=== PATIENT | male | born 1965 | race Asian ===

== ENCOUNTER 2025-01-28 11:46 | Inpatient (IN) | payer BC, SELFPAY ==
[2025-01-28] VITALS (12 sets, daily range): BP systolic 81–100; BP diastolic 63–73; PULSE 70–80; RESP 16–26; TEMP 36.4–37; O2SAT 94–100; BMI 25.8; BMI 26.6
--- NOTE | 2025-01-28 11:52 | EKG12_ITS ---
Test Reason : SYNCOPE Blood Pressure : */* mmHG Vent. Rate : 69 BPM Atrial Rate : 69 BPM P-R Int : 166 ms QRS Dur : 104 ms QT Int : 398 ms P-R-T Axes : 46 16 18 degrees QTcB Int : 426 ms Normal sinus rhythm Incomplete right bundle branch block Inferior infarct , age undetermined ? recent Abnormal ECG Confirmed by Dayne Sin ([id number]), desk editor ELIAN FERNANDES ([id number]) on 01/29/2025 9:13:22 AM Referred By: Confirmed By: Dayne Sin
[2025-01-28 12:51] LABS: Absolute Lymphocyte Count 0.86 X10^3/uL (0.83-4.51); Absolute Neutrophil Count 8.7 X10^3/uL (2.0-7.7); Hematocrit 39.4 % (40-54); Hemoglobin 13.4 g/dL (13.0-16.5); Lymphocyte # 0.86 X10^3/ul (0.83-4.51); Lymphocyte % 8.3 % (19-41); Mean Corpuscular Hgb 31.2 pg (27.0-32.0); Mean Corpuscular Volume 91.8 fL (80-94); Mean Platelet Vol. 10.2 fl (6.2-12.0); Monocyte# 0.69 X10^3/uL; Monocyte% 6.7 % (0-10); NRBC Flagged by Analyzer 0 % (0-5); Neutrophil # 8.73 X10^3/uL (2.7-7.7); Neutrophil % 84.6 % (47-70); Platelet Count 234 K/mm3 (150-450); RBC Distribution Width CV 12.8 % (11.6-14.6); RBC Distribution Width SD 42.6 fl (35.1-43.9); Red Blood Count 4.29 M/mm3 (4.6-6.2); White Blood Count 10.3 K/mm3 (4.4-11.0)
[2025-01-28] MEDS: 0.9% Normal Saline (1000mL) 1,000 ML 999 ML IV ×2 (12:51→16:44)
[2025-01-28 13:48] LABS: Anion Gap 12 (5-15); BUN 23 mg/dL (4-19); BUN/Creat Ratio 22.1 RATIO (10-20); Calcium,Total 9.4 mg/dL (7.6-11.0); Carbon Dioxide 21.3 mmol/L (21.0-32.0); Chloride 103 mmol/L (98-108); Creatinine, Serum 1.05 mg/dL (0.70-1.20); EST Glomerular Filtration Rate 81 (>60); Estimated Creatinine Clearance 66.67 ml/min (50-250); Glucose 125 mg/dL (70-99); Potassium 4.2 mmol/L (3.3-5.1); Sodium Level 136 mmol/L (133-145)
--- NOTE | 2025-01-28 14:22 | ED.VIS.DYS ---
HPI History of Present Illness Chief Complaint: Shortness of Breath Informant: patient and spouse/S.O. Narrative Narrative: 59-year-old male presenting with his , he states yesterday he was at [facility] and walked up 2-300 steps and felt very dyspneic when he got to the top, after resting for about 10 minutes he felt a lot better, friend helped him get to the car, air conditioning then felt very abnormally controlled. He had some lightheadedness and near syncope with walking this morning. He felt some burning discomfort in his upper throat like reflux that he is experienced before he states because of this he takes Tums almost every day but is not on no acid reflux medication otherwise. Since last night after the hiking, he has been having upper abdominal pain in the right upper quadrant and pressure throughout the rest of his upper abdomen. Some nausea no vomiting. Had a bowel movement this morning that was normal, no melena or blood, did not change his pain at all. He has been having daily bowel movements. Abdominal pain was no worse after eating food this morning. No history of any abdominal surgery before. No leg pain or swelling. No history of recent immobilization, long travel out of the area, surgery, no history of DVT or PE in the past. He takes daily prescriptions for blood pressure only. [facility] Medical History High blood cholesterol Hypertension Medical History no medical history Home Medications ?Medication ?Instructions ?Recorded ?Last Taken ?Type cholecalciferol (vitamin D3) 125 125 mcg PO DAILY 01/28/25 01/28/25 History mcg (5,000 unit) tablet (Vitamin D3) losartan 50 mg tablet 50 mg PO DAILY 01/28/25 01/28/25 History multivitamin (Daily Multi-Vitamin 1 tab PO DAILY 01/28/25 01/28/25 History tablet) Allergy/AdvReac Type Severity Reaction Status Date / Time No Known Allergies Allergy Verified 01/28/25 11:51 Family History no significant family his Surgical History (Updated 01/28/25 @ 12:38 by Mary Anne Oliveros) H/O hand surgery Surgical History no surgical history Social History Smoking Status: Never smoker ROS ROS ED Constitutional Constitutional ED: Denies chills or fever(s) Eyes Eyes: Denies change in vision or diplopia ENT ENT ED: Denies rhinorrhea or sore throat Cardiovascular Cardiovascular: Reports chest pain and lightheadedness; Denies leg edema, palpitations or syncope Respiratory/Chest Respiratory/Chest: Reports dyspnea on exertion; Denies cough Gastrointestinal Gastrointestinal: Reports abdominal pain and nausea; Denies diarrhea, hematemesis, hematochezia, melena or vomiting Genitourinary Genitourinary ED: Denies dysuria or hematuria Musculoskeletal Musculoskeletal: Reports back pain; Denies neck pain Integumentary Denies abscess or rash Neurologic Neurologic: Denies headache(s), paresthesias or weakness Psychiatric Psychiatric: Denies anxiety or suicidal thoughts EXAM Physical Exam Const Vital Signs: 01/28/25 11:47 01/28/25 11:51 01/28/25 11:51 Temperature 97.5 F L Temperature Source Temporal Pulse Rate 78 Respiratory Rate 16 21 H Respiratory Effort Respiratory Depth Respiratory Pattern Blood Pressure 89/68 L Blood Pressure Mean 75 Pulse Ox 100 98 98 Oxygen Delivery Method Room Air Room Air Room Air 01/28/25 12:34 01/28/25 12:39 01/28/25 13:00 Temperature Temperature Source Pulse Rate 70 Respiratory Rate 23 H Respiratory Effort Short of Breath Respiratory Depth Normal Respiratory Pattern Normal Blood Pressure 81/63 L 92/63 Blood Pressure Mean 69 72 Pulse Ox 97 Oxygen Delivery Method Room Air Room Air 01/28/25 14:00 01/28/25 15:00 01/28/25 16:00 Temperature Temperature Source Pulse Rate 73 74 71 Respiratory Rate 25 H 25 H 24 H Respiratory Effort Respiratory Depth Respiratory Pattern Blood Pressure 94/67 87/65 L 94/69 Blood Pressure Mean 76 72 78 Pulse Ox 97 97 96 Oxygen Delivery Method Room Air Positive well nourished and well developed Constitutional Narrative: Well-appearing no distress General Appearance ED: well developed and NAD HEENT Reports moist mucous membranes normocephalic and atraumatic Eyes PERRL and EOMs intact bilaterally Neck full ROM, no lymphadenopathy, supple and no meningeal signs Resp normal respiratory effort and clear to auscultation bilaterally Cardio regular rate, regular rhythm and no murmurs Rate: Negative for tachycardic GI non-distended GI Narrative: Mild right upper quadrant epigastric tenderness. Negative Beckwith. Auscultation: normoactive bowel sounds Palpation: soft Back/Spine no CVA tenderness General Back: other FROM Extremity normal to inspection General Extremety ED: Negative for edema, pulses abnormal or tenderness General Extremity: Negative for edema or pulses abnormal Neuro oriented x3, CN's II-XII intact bilaterally and no sensory deficits noted Sensorium / Orientation: awake and alert Motor Exam: strength 5/5 throughout Psych mental status grossly normal Skin no rashes or lesions noted and no wounds MDM MDM MDM Narrative Medical decision making narrative: Nursing protocol orders were begun, I reviewed his EKG is unremarkable except for an RSR prime in the anterior precordial leads. Diffuse differential here given his very benign exam, but hypotensive 89/68 when he arrived otherwise normal vital signs, currently during exam 94/67. I am considering sepsis, he does not sound clinically like he has pneumonia, but obtaining a chest x-ray, labs including liver enzymes and lipase, troponin and proBNP, as well as a D-dimer to rule out PE which she has no reason to have. In the meantime we will give him a liter of fluid, considering the possibility of hypovolemia/dehydration given his exertion/exercise tomorrow and he was in the hot sun. At this time he has a very benign abdomen, no pulsatile mass, intact distal pulses, he sitting up conversive in full sentences without any active dyspnea at rest and his lungs sound clear. His D-dimer is within normal limits rule out PE, his lactate is normal, he has barely elevated AST and ALT, and his proBNP is normal but his troponin returns at 1350 despite his EKG looking unremarkable. He remains fairly asymptomatic, however if he stands up he has orthostatic symptoms, he did this when getting his chest x-ray. After the first liter of fluid his blood pressure was still low so we got another liter and now he is 94/69. Empirically we gave him some Maalox while getting testing, he states that he upper chest burning that he had is gone and he feels like that treated his reflux but he still has right upper quadrant abdominal discomfort although he is not very tender. I discussed some of this with Dr. Sin, he advises putting the patient on a heparin drip and admitting him to the hospital and he will see him, I also gave him aspirin 324. Patient denies any pain going into his back or symptoms that sound like a dissection, but I am concerned with his transient hypotension that he could have an anterior cardiac/LV ischemic process although his EKG does not show anything right now except possibly some mildly abnormal T waves in lead aVF. He is inverted in lead III which can be normal, possibly aVF, but there is no ST depressions or elevations or other acute repolarization abnormalities. He continues to respond to IV fluids which we continue to give him in the ED. Cardiology saw him in the ED, agrees that he does not have an acute abdomen, suspects he is probably having some hepatic congestion from possible inferior wall NSTEMI, plan is for echo and probably cath in the morning. Discussed with hospitalist. Lab Data Attestation: I reviewed the patient's lab results. Labs: Laboratory Results - last 24 hr 01/28/25 01/28/25 01/28/25 12:40 14:50 15:09 WBC 10.3 RBC 4.29 L Hgb 13.4 Hct 39.4 L MCV 91.8 MCH 31.2 MCHC 34.0 RDW Std Deviation 42.6 RDW Coeff of Nivia 12.8 Plt Count 234 MPV 10.2 Immature Gran % (Auto) 0.400 Neut % (Auto) 84.6 H Lymph % (Auto) 8.3 L [place] % (Auto) 6.7 Eos % (Auto) 0.0 Baso % (Auto) 0.0 Absolute Neuts (auto) 8.7 H Absolute Lymphs (auto) 0.86 Nucleated RBC % 0 D-Dimer Quant (PE/DVT) 0.34 Sodium 136 Potassium 4.2 Chloride 103 Carbon Dioxide 21.3 Anion Gap 12 BUN 23 H Creatinine 1.05 Estim Creat Clear Calc 66.67 Est GFR (MDRD) Non-Af 81 BUN/Creatinine Ratio 22.1 H Glucose 125 H Lactic Acid 1.8 Calcium 9.4 Total Bilirubin 0.63 Direct Bilirubin 0.26 AST 228 H ALT 60 H Alkaline Phosphatase 63 Troponin T High Sens 1350 H* NT pro BNP II 695 Total Protein 6.2 Albumin 3.6 Globulin 2.6 Lipase 25 Urine Color Yellow Urine Clarity Clear Urine pH 6.0 Ur Specific [place] 1.020 Urine Protein 30 H Urine Glucose (UA) Normal Urine Ketones Negative Urine Occult Blood 10 H Urine Nitrite Negative Urine Bilirubin Negative Urine Urobilinogen Normal Ur Leukocyte Esterase Negative Urine RBC 0 SEEN Urine WBC 0 SEEN Ur Squamous Epith Cells 0-5 SEEN Urine Bacteria 0 SEEN Urine Mucus 1+ Radiography Diagnostic Testing: Clinical Impression(s) from Imaging Studies Chest X-Ray 01/28/25 15:25 IMPRESSION: NO ACUTE FINDINGS. Reading Location: [id number] Rhythm Strip Rhythm Strip: Sinus Rhythm Rate: 70 Ectopy: None EKG Initial EKG: Attestation: I personally reviewed and interpreted this EKG as follows: Interpretation: Sinus Rhythm and No Acute Injury Pattern Comments: Nml axis & intervals; nml EKG Management Discussion w/another healthcare provider: Hospitalist and Certified Marine [employer]ic (michaela, cardiology) Critical Care Time Critical Care Time: Yes Critical care time (excluding procedures): 30-74 minutes (32 min), Including time spent:, Discussing w/Patient &/or Family/Development Director, Discussing w/Consultants, Arranging Admission or Transfer and Performing Direct Patient Care at Bedside Discharge Plan Dx/Rx/DC Orders Clinical Impression: Non-ST elevation [place] (NSTEMI), Transient hypotension, Abdominal pain, acute, right upper quadrant Disposition Disposition: Acute Care Hospital [facility]
[2025-01-28] MEDS: Ondansetron 4 MG/2 ML Vial IV (15:08)
[2025-01-28] MEDS: Mag Hydrox/Al Hydrox/Simeth 30 ML UDC PO (15:08)
[2025-01-28 15:13] LABS: Bacteria 0 SEEN /hpf (None Seen); Red Blood Cells-Urine 0 SEEN /hpf (0-5); White Blood Cells 0 SEEN /hpf (0-5)
[2025-01-28 15:18] LABS: D-Dimer Quantitative (DVT/PE) 0.34 FEU/ug/m (0.27-0.49)
[2025-01-28 15:21] LABS: Color, Urine Yellow (Yellow); Glucose, Dipstick Normal (Normal); Ketone-Dipstick Negative (Negative); Leukocyte Esterase-Dipstick Negative /ul (Negative); Nitrite-Dipstick Negative (Negative); Occult Blood-Urine 10 /ul (Negative); Protein-Dipstick 30 mg/dl (Negative); Urine Bilirubin Dipstick Negative (Negative); Urine Clarity Clear (Clear); Urine Urobilinogen Normal (Normal)
--- NOTE | 2025-01-28 15:25 | RAD_ITS ---
PROCEDURE: CHEST PA AND LATERAL 01/28/2025 REASON FOR EXAM: CARMONA TECHNIQUE: Frontal and lateral views of the chest. COMPARISON: None FINDINGS: Hardware: EKG electrodes are seen. Heart: The heart size is normal. Mediastinum: The mediastinal contour is unremarkable. Lungs: The lungs are clear. Bones: The bones are unremarkable. RAD/Chest PA and Lateral IMPRESSION: NO ACUTE FINDINGS. Reading Location: [facility]
[2025-01-28 15:27] LABS: AST(SGOT) 228 U/L (<=37); Alanine Aminotransfer ALT/SGPT 60 U/L (<=46); Albumin, Serum 3.6 g/dL (3.4-4.8); Alkaline Phosphatase 63 U/L (40-129); Bilirubin, Direct 0.26 mg/dL (0.00-0.30); Globulin 2.6 g/dL (2.2-4.2); Lipase 25 U/L (13-75); Protein, Total 6.2 g/dL (5.9-8.4); Total Bilirubin 0.63 mg/dL (0.00-1.30)
[2025-01-28 15:29] LABS: Lactic Acid 1.8 mmol/L (0.0-2.0)
[2025-01-28 15:29] LABS: Mucous, Urine 1+ /hpf (<or=2+); Squamous Epithelial Cells - UA 0-5 SEEN /hpf (0-5)
[2025-01-28 15:30] LABS: Pro- Brain NATRIURETIC PEPTIDE 695 pg/mL (<=900)
[2025-01-28 15:34] LABS: Troponin T High Sensitivity 1350 ng/L (<=22)
[2025-01-28] MEDS: Heparin Injection (Vial) 5,000 UNIT/ML VIAL 4000 UNIT IV (16:20)
[2025-01-28] MEDS: HEPARIN/D5w 25,000 UNITS 25,000 UNITS/250 ML IV.SOLN. 9 UNITS CONT INF ×2 (16:20)
[2025-01-28] MEDS: Aspirin 81 MG TAB.CHEW 324 MG PO (16:21)
--- NOTE | 2025-01-28 16:39 | PCM.HP.STD ---
HPI - General General Date of Admission: 01/28/25 Date of Service: 01/28/25 Chief Complaint: Lightheadedness, dizziness, near syncope, chest pain/dyspepsia HPI Narrative The patient is a 59 y/o M w/ PMHx: HTN, HLD who presents to the [facility] ED on 01/28/25 with history of significant exercise with his the day with significant dyspnea with improvement with at least 10 minutes of rest with a friend helping him get to the car with mild lightheadedness and near syncopal type sensation noted with walking on morning of day of presentation with onset of chest discomfort/burning with radiation into his upper throat with concern for may be dyspepsia at that time noting that he takes Tums nearly every day with also mild upper abdominal discomfort radiating into the right upper quadrant with a pressure like sensation throughout his upper abdomen with mild nausea but no emesis with normal bowel movement on day of presentation with no pain with eating but given these abnormalities prompted ED evaluation to be cautious. He does report remotely many years ago he did have exertional dyspnea but had a stress test at that time that was normal. Patient notes chest discomfort/pressure at its worst was rated 5 out of 10 in severity and currently notes it has resolved. Workup in the ED included T97.5, heart rate 78, BP initially 89/68, respiratory rate 16, percent room air with BP transiently dropping to 81/63 with most recent repeat vitals heart rate 71, BP 94/69, respiratory rate 24, 96% on room air, CBC with WBC 10.3, hemoglobin 13.4, platelet 234 with left shift, D-dimer 0.34, CMP with BUN/creatinine 23/1.05, GFR 81, glucose 125, lactic acid 1.8, AST/ALT 228/60, normal total and direct bilirubin, alk phos 63, troponin 1350, NT proBNP 10/25/1994, urinalysis unremarkable, chest x-ray with no acute cardiopulmonary findings, EKG with sinus rhythm except mild abnormal T wave in lead aVF, inverted in lead III otherwise no acute evidence of ischemia. In the ED patient ministered 2 L normal saline, full-strength aspirin therapy, initiated on heparin drip with bolus, Mylanta 30 mL p.o. x 1, Zofran 4 mg IV x 1. ED physician discussed case with Dr. Sin who requested heparin drip and bolus with planned echocardiogram and cardiac catheterization suspecting likely inferior wall FL given hypotension and felt that liver function elevation is likely hepatic congestion from the FL. REPLACED BY [facility] Medical History High blood cholesterol Hypertension Medical History no medical history Home Medications ?Medication ?Instructions ?Recorded ?Last Taken ?Type cholecalciferol (vitamin D3) 125 125 mcg PO DAILY 01/28/25 01/28/25 History mcg (5,000 unit) tablet (Vitamin D3) losartan 50 mg tablet 50 mg PO DAILY 01/28/25 01/28/25 History multivitamin (Daily Multi-Vitamin 1 tab PO DAILY 01/28/25 01/28/25 History tablet) Allergy/AdvReac Type Severity Reaction Status Date / Time No Known Allergies Allergy Verified 01/28/25 11:51 Family History (Updated 01/28/25 @ 17:[address] Pastora Perez MD) Mother , age 84. Liver cancer Father , No medical history, age 93. No problems noted. Family History no significant family his Surgical History H/O hand surgery Surgical History no surgical history Social History household members: spouse Smoking Status: Never smoker alcohol intake: never substance use type: does not use ROS ROS Narrative Admission Review of Systems: CONSTITUTIONAL: No weight loss, fever, chills, + weakness or fatigue. HEENT: + Lightheadedness, dizziness, near syncopal type sensation. Eyes: No visual loss, blurred vision, double vision or yellow sclerae. Ears, Nose, Throat: No hearing loss, sneezing, congestion, runny nose or sore throat. SKIN: No rash or itching, lesions, wounds. CARDIOVASCULAR: + Chest pain/pressure, lightheadedness/dizziness, near syncopal sensation. No palpitations, edema, orthopnea, syncopal events. RESPIRATORY: + Dyspnea. No cough or sputum, wheezing, hemoptysis. GASTROINTESTINAL: + Dyspepsia, upper abdominal fullness, upper abdominal discomfort. No anorexia, nausea, vomiting or diarrhea, melena, BRBPR. GENITOURINARY: No dysuria, frequency, urgency or retention. NEUROLOGICAL: + Lightheadedness, dizziness, near syncopal type sensation. No headache, syncope, paralysis, ataxia, numbness or tingling in the extremities, focal weakness, change in bowel or bladder control, seizure. MUSCULOSKELETAL: + muscle, back pain, joint pain or stiffness. HEMATOLOGIC: No anemia, bleeding or bruising. LYMPHATICS: No enlarged nodes. No history of splenectomy. PSYCHIATRIC: No history of depression or anxiety. ENDOCRINOLOGIC: + reports of sweating. No cold or heat intolerance. No polyuria or polydipsia. ALLERGIES: No history of asthma, hives, eczema or rhinitis. Vital Signs Vital Signs Vital Signs: 01/28/25 11:47 01/28/25 11:51 01/28/25 11:51 Temperature 97.5 F L Temperature Source Temporal Pulse Rate 78 Respiratory Rate 16 21 H Respiratory Effort Respiratory Depth Respiratory Pattern Blood Pressure 89/68 L Blood Pressure Mean 75 Pulse Ox 100 98 98 Oxygen Delivery Method Room Air Room Air Room Air 01/28/25 12:34 01/28/25 12:39 01/28/25 13:00 Temperature Temperature Source Pulse Rate 70 Respiratory Rate 23 H Respiratory Effort Short of Breath Respiratory Depth Normal Respiratory Pattern Normal Blood Pressure 81/63 L 92/63 Blood Pressure Mean 69 72 Pulse Ox 97 Oxygen Delivery Method Room Air Room Air 01/28/25 14:00 01/28/25 15:00 01/28/25 16:00 Temperature Temperature Source Pulse Rate 73 74 71 Respiratory Rate 25 H 25 H 24 H Respiratory Effort Respiratory Depth Respiratory Pattern Blood Pressure 94/67 87/65 L 94/69 Blood Pressure Mean 76 72 78 Pulse Ox 97 97 96 Oxygen Delivery Method Room Air Weight Weight: 160 lb Body Mass Index (BMI) 25.8 Physical Exam Narrative Physical Examination: General: Awake, alert, oriented x 3 and cooperative, seated upright in the ED bed in no apparent distress, denies any current chest discomfort, does state he still has epigastric fullness sensation but no pain. Skin: Normal color, normal turgor, no icterus, no cyanosis. HEENT: AT/NC, EOMI, PERRLA, mildly dry MM, no carotid bruits or JVD noted. Lungs: Mild diminished, greater bases, appropriate effort, no rales, ronchi or wheezing. Heart: Regular rate and rhythm; no gallop, rub audible. Abdomen: Soft, NTTP including the epigastric and right upper quadrant, no rebound or guarding, no marked distention, mildly hyperactive BS, no appreciated HSM. Extremities: No cyanosis, clubbing, or edema. Neurological: Patient awake, alert, oriented as noted, cognitive function intact; pupils equally reactive to light and accommodation, cranial nerves gross normal, moving all 4 extremities, no focal deficits, strength mildly to moderately globally decreased secondary to acute presentation complaints. Psychiatric: Affect appears fatigued otherwise normal, no acute evidence of depressive or anxiety feelings. Results Lab / Micro Data 01/28/25 12:40 01/28/25 12:40 Labs: Laboratory Results - last 24 hr 01/28/25 12:40: WBC 10.3, RBC 4.29 L, Hgb 13.4, Hct 39.4 L, MCV 91.8, MCH 31.2, MCHC 34.0, RDW Std Deviation 42.6, RDW Coeff of Nivia 12.8, Plt Count 234, MPV 10.2, Immature Gran % (Auto) 0.400, Neut % (Auto) 84.6 H, Lymph % (Auto) 8.3 L, [place] % (Auto) 6.7, Eos % (Auto) 0.0, Baso % (Auto) 0.0, Absolute Neuts (auto) 8.7 H, Absolute Lymphs (auto) 0.86, Nucleated RBC % 0, Sodium 136, Potassium 4.2, Chloride 103, Carbon Dioxide 21.3, Anion Gap 12, BUN 23 H, Creatinine 1.05, Estim Creat Clear Calc 66.67, Est GFR (MDRD) Non-Af 81, BUN/Creatinine Ratio 22.1 H, Glucose 125 H, Calcium 9.4, NT pro BNP II 695 01/28/25 14:50: D-Dimer Quant (PE/DVT) 0.34, Lactic Acid 1.8, Total Bilirubin 0.63, Direct Bilirubin 0.26, AST 228 H, ALT 60 H, Alkaline Phosphatase 63, Troponin T High Sens 1350 H*, Total Protein 6.2, Albumin 3.6, Globulin 2.6, Lipase 25 01/28/25 15:09: Urine Color Yellow, Urine Clarity Clear, Urine pH 6.0, Ur Specific [place] 1.020, Urine Protein 30 H, Urine Glucose (UA) Normal, Urine Ketones Negative, Urine Occult Blood 10 H, Urine Nitrite Negative, Urine Bilirubin Negative, Urine Urobilinogen Normal, Ur Leukocyte Esterase Negative, Urine RBC 0 SEEN, Urine WBC 0 SEEN, Ur Squamous Epith Cells 0-5 SEEN, Urine Bacteria 0 SEEN, Urine Mucus 1+ Rhythm Strip Rhythm Strip: Sinus Rhythm Rate: 70 Ectopy: None Imaging Radiology Impression Chest X-Ray 01/28/25 15:25 IMPRESSION: NO ACUTE FINDINGS. Reading Location: [id number] Assessment & Plan Assessment/Plan (1) Non-ST elevation FL (NSTEMI): PLAN: Plan The patient is a 59 y/o M w/ PMHx: HTN, HLD who presents to the [facility] ED on 01/28/25 with history of significant exercise with his the day with significant dyspnea with improvement with at least 10 minutes of rest with a friend helping him get to the car with mild lightheadedness and near syncopal type sensation noted with walking on morning of day of presentation with onset of chest discomfort/burning with radiation into his upper throat with concern for may be dyspepsia at that time noting that he takes Tums nearly every day with also mild upper abdominal discomfort radiating into the right upper quadrant with a pressure like sensation throughout his upper abdomen with mild nausea but no emesis with normal bowel movement on day of presentation with no pain with eating but given these abnormalities prompted ED evaluation to be cautious. #1. Chest Pain, lightheadedness, dizziness w/ Acute NSTEMI with associated hypotension, suspected secondary to likely inferior wall FL with associated hepatic congestion suspected with mild transaminitis: EKG with sinus rhythm except mild abnormal T wave in lead aVF, inverted in lead III otherwise no acute evidence of ischemia, CXR w/ no acute cardiopulmonary findings. Trop elevated, 1350. Will admit to PCU, continue IV fluids given hypotension, maintain on a monitored bed, continue serial cardiac enzymes and EKGs. Obtain magnesium level upon admission. Continue heparin drip. Continue medical management w/ asa, add statin w/ AM FLP. ECHO requested. Cardiology consulted, plan for cardiac catheterization. Hold on nitroglycerin or hypertensive regimen given hypotensive presentation. #2. Elevated liver enzymes/transaminitis,suspected related with #1 with associated hepatic congestion with FL: Admission CMP with total bilirubin 0.63, direct eleven 0.26, AST/LT 228/60, alk phos 63, continue evaluation and treatment as noted #1, continue hydration, repeat CMP in AM, if not significantly elevated will initiate statin therapy as noted. #3. Possible Chronic Kidney Disease Stage II per GFR however no comparison, certainly could be elevated given hypotension as noted with hypoperfusion: Admission BUN/Cr 23/1.05, GFR 81, baseline renal function unknown, repeat BMP in AM to help further elucidate chronicity. #4. Hypertension: Given significant hypotension upon presentation holding losartan, continue to monitor. #5. Hyperlipidemia: Noted history, initiating statin therapy as noted, FLP in AM. #6. DVT prophylaxis: Will continue heparin drip as noted. Charges/Coding Visit Charges Inpatient E&M: 62914 Init Hosp L3
[2025-01-28 16:51] LABS: Partial Thromboplast Time 26.6 Seconds (24.1-36.2); Prothrombin Time (Protime)PT. 12.9 SECONDS (11.7-14.9)
--- NOTE | 2025-01-28 16:53 | EKG12_ITS ---
Test Reason : CP ADMIT Blood Pressure : */* mmHG Vent. Rate : 66 BPM Atrial Rate : 66 BPM P-R Int : 144 ms QRS Dur : 102 ms QT Int : 398 ms P-R-T Axes : 57 19 15 degrees QTcB Int : 417 ms Normal sinus rhythm with sinus arrhythmia Incomplete right bundle branch block Possible Inferior infarct , age undetermined Abnormal ECG When compared with ECG of 28-Jan-2025 12:26, MANUAL COMPARISON REQUIRED DATA IS UNCONFIRMED Confirmed by Dayne Sin ([id number]), associate editor ELIAN FERNANDES ([id number]) on 01/29/2025 11:40:58 AM Referred By: Confirmed By: Dayne Sin
--- NOTE | 2025-01-28 16:53 | PCM.CONS.C ---
Assessment & Plan Assessment/Plan (1) Non-ST elevation [place] (NSTEMI): PLAN: Patient's initial troponin was 1350. This is approximately 24 hours after his initial profound dyspnea on exertion started. He also had some nausea that was episodic throughout the evening. His ECG is consistent with some minor changes inferior leads and what appears to be old Q waves in 2 and aVF. There is subtle ST and T wave changes in the same inferior leads. Patient is asymptomatic at this point in time lying comfortably on the gurney in the emergency department. He has been heparinized and resuscitated with 2 L of fluid. Recommend left heart catheterization. The procedure risk/benefit and alternatives were explained to the patient and his family member who voiced understanding and agreed to proceed. Will obtain a 2D echocardiogram prior to the catheterization. (2) Abdominal pain, acute, right upper quadrant: PLAN: The patient's AST is elevated 228, ALT minimally elevated at 60. The patient drinks alcohol approximately once a month. He did have some mild tenderness to his right upper quadrant by palpation earlier. It is possible this may be related to hepatic congestion from some right-sided dysfunction from an inferior wall infarct. It also could be a noncardiac issue. (3) Hypertension: QUALIFIERS: Hypertension type: primary hypertension Qualified Code(s): I10 - Essential (primary) hypertension PLAN: Patient carries a history of hypertension he has been treated with losartan. (4) High blood cholesterol: PLAN: The patient has a history of hyperlipidemia but has not been on treatment. PLAN: Plan 1. Agree with heparinizing the patient. 2. Recommend left heart catheterization in the next 24 hours. 3. Will obtain 2D echocardiogram to evaluate LV function. 4. Would consider ultrasound of the abdomen to evaluate the liver and elevated LFTs. HPI Consult Data Date of Consult: 01/28/25 HPI Narrative Reason for Consultation: Dyspnea on exertion with positive troponins and elevated LFTs HPI Narrative: WARREN HONG, is a 59 M who presents with a history of developing significant dyspnea on exertion with walking up to 100 steps at [employer] yesterday. He went back to his car and got in front of the cold air conditioner and became nauseated. He went home from there and just did not feel right all night woke up this morning and was still not feeling back to normal. He did report some chest sensations that are difficult for him to explain he is first generation French but he speaks Polish very well. The patient also noted that he was lightheaded and he had a burning type of reflux type sensation under his breastbone. The patient was evaluated in the emergency department he really does not have any symptoms at rest his D-dimer was negative his ECG showed some old Q waves in the inferior leads consistent with a possible old inferior wall infarct there was some subtle ST and T wave changes in the inferior leads. The patient's BNP was normal at 695 and his blood pressure was in the 80?85 systolic range. He received 2 L of fluid his blood pressure is up in the 90 systolic range. Heart rate remains normal sinus rhythm. The patient's family member was at the bedside as well. The patient carries a history of hypertension blood pressure runs 140 systolic when he does not take his blood pressure medicine, losartan. He also has a history of hyperlipidemia on no medications and he takes Tums for this reflux symptoms on a daily basis. The patient and the family member both report that he has had dyspnea with strenuous exertion when he plays tennis and he gets short of breath with that but denies any chest discomfort and it always resolves quickly when he stops playing. This episode was definitely different that he had walking up the stairs. The patient denies any history of diabetes. He is hypertensive and hyperlipidemic is noted. His blood pressure is treated his lipids are not. He denies ever smoking. [facility] Medical History (Updated 01/28/25 @ 17:[address] Dayne Sin MD) High blood cholesterol Hypertension Medical History no medical history Home Medications ?Medication ?Instructions ?Recorded ?Last Taken ?Type cholecalciferol (vitamin D3) 125 125 mcg PO DAILY 01/28/25 01/28/25 History mcg (5,000 unit) tablet (Vitamin D3) losartan 50 mg tablet 50 mg PO DAILY 01/28/25 01/28/25 History multivitamin (Daily Multi-Vitamin 1 tab PO DAILY 01/28/25 01/28/25 History tablet) Allergy/AdvReac Type Severity Reaction Status Date / Time No Known Allergies Allergy Verified 01/28/25 11:51 Family History no significant family his Surgical History H/O hand surgery Surgical History no surgical history Social History Smoking Status: Never smoker ROS ROS Narrative Patient reports he has been very active in his home environment and this was suddenly different change in his dyspnea with heavy activity. Constitutional Constitutional: Reports as per HPI Eyes Eyes: Reports systems reviewed and no addt'l complaints, except as documented ENT HEENT: Reports systems reviewed and no addt'l complaints, except as documented Cardiovascular Cardiovascular: Reports as per HPI, chest pain and dyspnea Respiratory/Chest Respiratory/Chest: Reports as per HPI and dyspnea Gastrointestinal Gastrointestinal: Reports dyspepsia, heartburn and nausea Genitourinary Genitourinary: Reports systems reviewed and no addt'l complaints, except as documented Musculoskeletal Musculoskeletal: Reports systems reviewed and no addt'l complaints, except as documented Integumentary Integumentary: Reports systems reviewed and no addt'l complaints, except as documented Neurologic Neurologic: Reports systems reviewed and no addt'l complaints, except as documented Psychiatric Psychiatric: Reports systems reviewed and no addt'l complaints, except as documented Endocrine Endocrinology: Reports as per HPI Hematologic/Lymphatic Hematologic/Lymphatic: Reports systems reviewed and no addt'l complaints, except as documented Allergic/Immunologic Allergic/Immunologic: Reports systems reviewed and no addt'l complaints, except as documented Physical Exam Narrative Patient is resting comfortably on the gurney in the emergency department denying any chest discomfort or shortness of breath at this time. Const alert and oriented x3 HEENT normocephalic Eyes EOMs intact bilaterally Neck no JVD Carotids: Negative for bruit Chest inspection of chest normal Resp normal respiratory effort and clear to auscultation bilaterally Cardio Rate: regular rate Rhythm: regular rhythm Heart Sounds: S1 normal and S2 normal; Negative for click, gallop or murmur GI GI Narrative: Tense but nontender to palpation bowel sounds were audible. Extremity no pedal edema Neuro Neuro Narrative: Alert and oriented x 3 Psych mental status grossly normal Risk Stratification Risk Stratification Applicable: Yes Age >/= 65: No >/= 3 CAD Risk Factors (HTN, HLD, DM, family hx of CAD, or current smoker): No Aspirin Use in the Past 7 Days: No Severe Angina (>/= episodes in 24 hours): Yes EKG ST Changes >/= 0.5mm: No Positive Cardiac Marker: Yes ISABELLA Risk Stratification Score: 2 ISABELLA % Risk: 8% Risk Charges/Coding Visit Charges Inpatient E&M: 57059 Init Hosp L3 Objective Data Vital Signs: Vital Signs Temp Pulse Resp BP Pulse Ox O2 Del Method 98.6 F 73 22 H 91/66 94 Room Air 01/28/25 16:51 01/28/25 16:51 01/28/25 16:51 01/28/25 16:51 01/28/25 16:51 01/28/25 15:00 Oxygen Delivery Method Room Air Weight: 160 lb Body Mass Index (BMI) 25.8 Intake & Output: Intake and Output for Last 24 Hours 01/26/25 01/27/25 01/28/25 23:59 23:59 23:59 Intake Total 1000 / 1000 Balance 1000 / 1000 Lab / Micro Data Attestation: I reviewed the patient's lab results. 01/28/25 12:40 01/28/25 12:40 Labs: Laboratory Results - last 24 hr 01/28/25 12:40: WBC 10.3, RBC 4.29 L, Hgb 13.4, Hct 39.4 L, MCV 91.8, MCH 31.2, MCHC 34.0, RDW Std Deviation 42.6, RDW Coeff of Nivia 12.8, Plt Count 234, MPV 10.2, Immature Gran % (Auto) 0.400, Neut % (Auto) 84.6 H, Lymph % (Auto) 8.3 L, [place] % (Auto) 6.7, Eos % (Auto) 0.0, Baso % (Auto) 0.0, Absolute Neuts (auto) 8.7 H, Absolute Lymphs (auto) 0.86, Nucleated RBC % 0, PT 12.9, INR 1.0, APTT 26.6, Sodium 136, Potassium 4.2, Chloride 103, Carbon Dioxide 21.3, Anion Gap 12, BUN 23 H, Creatinine 1.05, Estim Creat Clear Calc 66.67, Est GFR (MDRD) Non-Af 81, BUN/Creatinine Ratio 22.1 H, Glucose 125 H, Calcium 9.4, NT pro BNP II 695 01/28/25 14:50: D-Dimer Quant (PE/DVT) 0.34, Lactic Acid 1.8, Total Bilirubin 0.63, Direct Bilirubin 0.26, AST 228 H, ALT 60 H, Alkaline Phosphatase 63, Troponin T High Sens 1350 H*, Total Protein 6.2, Albumin 3.6, Globulin 2.6, Lipase 25 01/28/25 15:09: Urine Color Yellow, Urine Clarity Clear, Urine pH 6.0, Ur Specific [place] 1.020, Urine Protein 30 H, Urine Glucose (UA) Normal, Urine Ketones Negative, Urine Occult Blood 10 H, Urine Nitrite Negative, Urine Bilirubin Negative, Urine Urobilinogen Normal, Ur Leukocyte Esterase Negative, Urine RBC 0 SEEN, Urine WBC 0 SEEN, Ur Squamous Epith Cells 0-5 SEEN, Urine Bacteria 0 SEEN, Urine Mucus 1+ Rhythm Strip Rhythm Strip: Sinus Rhythm Rate: 70 Ectopy: None Cardiology Labs/Tests 01/28/25 12:40: WBC 10.3, RBC 4.29 L, Hgb 13.4, Hct 39.4 L, MCV 91.8, MCH 31.2, MCHC 34.0, Plt Count 234, MPV 10.2, Immature Gran % (Auto) 0.400, Neut % (Auto) 84.6 H, Lymph % (Auto) 8.3 L, [place] % (Auto) 6.7, Eos % (Auto) 0.0, Baso % (Auto) 0.0, Absolute Neuts (auto) 8.7 H, Nucleated RBC % 0, PT 12.9, INR 1.0, APTT 26.6, Sodium 136, Potassium 4.2, Chloride 103, Carbon Dioxide 21.3, Anion Gap 12, BUN 23 H, Creatinine 1.05, Est GFR (MDRD) Non-Af 81, BUN/Creatinine Ratio 22.1 H, Glucose 125 H, Calcium 9.4 01/28/25 14:50: D-Dimer Quant (PE/DVT) 0.34, Lactic Acid 1.8, Total Bilirubin 0.63, Direct Bilirubin 0.26 01/28/25 15:09: Urine Color Yellow, Urine Clarity Clear, Urine pH 6.0, Ur Specific [place] 1.020, Urine Protein 30 H, Urine Glucose (UA) Normal, Urine Ketones Negative, Urine Occult Blood 10 H, Urine Nitrite Negative, Urine Bilirubin Negative, Urine Urobilinogen Normal, Ur Leukocyte Esterase Negative, Urine RBC 0 SEEN, Urine WBC 0 SEEN Rhythm: EKG: ECHO: Stress Test: Cardiac Cath: PCI: CT Surgery: Holter monitor: EPS: PPM: CXR: Chest CT Scan: Radiography Diagnostic Testing: Radiology Impression Chest X-Ray 01/28/25 15:25 IMPRESSION: NO ACUTE FINDINGS. Reading Location: [id number]
[2025-01-28 17:48] LABS: Troponin T High Sens 2 HR 1595 ng/L (<=22)
[2025-01-28 18:04] LABS: Magnesium 2.1 mg/dL (1.5-2.2)
--- NOTE | 2025-01-28 18:07 | ECHOCS_ITS ---
Reason For Study Reason For Study: NSTEMI Procedure This was a 2D Doppler, Color Flow transthoracic echocardiogram. Myocardial strain analysis was performed in this exam to aid in the assessment of cardiac function. Contrast injection was performed. Exam performed portable in patient room. Left Ventricle Normal LV size. Left ventricular systolic function is normal. The left ventricular ejection fraction is 50 %. Stage 1 diastolic dysfunction. Mild segmental systolic dysfunction (see wall motion). Infero-Basal: Akinetic. Basal inferoseptal: Hypokinetic. Right Ventricle Mildly dilated right ventricle. Moderate global right ventricular systolic dysfunction. Atria Normal left atrium. Normal right atrium. Mitral Valve Normal mitral valve. Mild (1+) mitral valve insufficiency. Tricuspid Valve Normal tricuspid valve. Mild (1+) tricuspid valve insufficiency. Pulmonary artery systolic pressure is 18 mmHg. Aortic Valve Trisinus/trileaflet aortic valve. Pulmonic Valve Normal pulmonic valve. Mild (1+) pulmonic valve insufficiency. Great Vessels Normal aortic root. The pulmonary artery is normal size. Inferior vena cava collapse with respiration. Pericardium/Pleural No pericardial effusion. Medication Diluted definity 3ml given slow IV push to enhance endocardial definition. MMode/2D Measurements & Calculations LVIDd: 4.4 cm IVSd: 0.88 cm Ao root diam: 3.0 cm LVIDs: 3.2 cm LVPWd: 0.71 cm RVDd: 3.7 cm FS: 28.1 % LAV(MOD-bp): 30.3 ml LVAd ap4: 23.2 cm2 LVAd ap2: 28.1 cm2 LAV(MOD-bp) Indexed: 16.4 ml/m2 LVLd ap4: 7.5 cm LVLd ap2: 7.6 cm LAV(MOD-sp2): 31.8 ml EDV(MOD-sp4): 58.2 ml EDV(MOD-sp2): 86.1 ml LAV(MOD-sp4): 24.2 ml EDV(sp4-el): 60.9 ml EDV(sp2-el): 87.6 ml LVAs ap4: 14.3 cm2 LVAs ap2: 16.9 cm2 LVLs ap4: 6.0 cm LVLs ap2: 6.1 cm ESV(MOD-sp4): 29.3 ml ESV(MOD-sp2): 42.3 ml ESV(sp4-el): 28.6 ml ESV(sp2-el): 39.8 ml EF(MOD-sp4): 49.6 % EF(MOD-sp2): 50.8 % EF(sp4-el): 53.0 % SV(MOD-sp4): 28.9 ml SV(MOD-sp2): 43.8 ml SV(sp4-el): 32.3 ml SI(MOD-sp4): 15.6 ml/m2 SI(MOD-sp2): 23.7 ml/m2 LA A4 area: 11.9 cm2 LA dimension(2D): 3.8 cm TAPSE: 0.79 cm Time Measurements MV dec time: 0.17 sec Doppler Measurements & Calculations MV E max donnie: 64.3 cm/sec Lat Peak E' Donnie: 12.8 cm/sec Med Peak E' Donnie: 7.0 cm/sec MV A max donnie: 73.1 cm/sec E/E' lat: 5.0 E/E' med: 9.1 MV E/A: 0.88 MV dec slope: 381.3 cm/sec2 Ao V2 max: 95.9 cm/sec LV V1 max: 96.5 cm/sec Ao max P.7 mmHg LV V1 max P.7 mmHg Ao V2 mean: 75.6 cm/sec Ao mean P.4 mmHg Ao V2 VTI: 19.2 cm PA V2 max: 57.1 cm/sec TR max donnie: 193.2 cm/sec TR max P.9 mmHg ECHO/Echo Complete W/ Contrast Interpretation Summary Normal LV size. Left ventricular systolic function is normal. The left ventricular ejection fraction is 50 %. Stage 1 diastolic dysfunction. Mild segmental systolic dysfunction (see wall motion). Ordering Physician: Pastora Perez Referring Physician: Zohaib Lyon Performed By: Yamilka Ford, DAPHNEY, RVT
[2025-01-28] MEDS: 0.9% Normal Saline (1000mL) 1,000 ML 100 ML IV (18:53)
[2025-01-28 19:32] LABS: Troponin T High Sens 4 HR 1927 ng/L (<=22)
[2025-01-28 22:32] LABS: Partial Thromboplast Time 113.2 Seconds (24.1-36.2)
[2025-01-28] MEDS: Atorvastatin Calcium 80 MG Tablet PO (22:46)
[2025-01-29] VITALS (12 sets, daily range): BP systolic 90–102; BP diastolic 62–73; PULSE 71–83; RESP 16–18; TEMP 36.6–36.9; O2SAT 92–97; BMI 26.8
[2025-01-29] MEDS: 0.9% Normal Saline (1000mL) 1,000 ML 100 ML IV (04:52)
[2025-01-29] MEDS: Aspirin E.C. 81 MG Tablet PO (05:10)
[2025-01-29] MEDS: Ondansetron 4 MG/2 ML Vial IV (05:25)
[2025-01-29] MEDS: 0.9% Saline Lock 10 ML Syringe IV ×2 (05:25→10:27)
--- NOTE | 2025-01-29 05:55 | EKG12_ITS ---
Test Reason : AM Blood Pressure : */* mmHG Vent. Rate : 70 BPM Atrial Rate : 70 BPM P-R Int : 144 ms QRS Dur : 102 ms QT Int : 398 ms P-R-T Axes : 27 8 -7 degrees QTcB Int : 429 ms Normal sinus rhythm Incomplete right bundle branch block Inferior infarct , age undetermined Abnormal ECG When compared with ECG of 28-Jan-2025 18:48, MANUAL COMPARISON REQUIRED DATA IS UNCONFIRMED Confirmed by Dayne Sin ([id number]), commissioning editor ELIAN FERNANDES ([id number]) on 01/29/2025 11:44:11 AM Referred By: Confirmed By: Dayne Sin
[2025-01-29 06:05] LABS: Absolute Lymphocyte Count 0.91 X10^3/uL (0.83-4.51); Absolute Neutrophil Count 6.2 X10^3/uL (2.0-7.7); Basophil# 0.01 X10^3/uL; Basophil% 0.1 % (0-1); Hematocrit 37.2 % (40-54); Hemoglobin 12.4 g/dL (13.0-16.5); Lymphocyte # 0.91 X10^3/ul (0.83-4.51); Lymphocyte % 11.4 % (19-41); Mean Corp Hgb Conc 33.3 g/dL (32-36); Mean Corpuscular Hgb 31.2 pg (27.0-32.0); Mean Corpuscular Volume 93.5 fL (80-94); Mean Platelet Vol. 10.3 fl (6.2-12.0); Monocyte# 0.75 X10^3/uL; Monocyte% 9.4 % (0-10); NRBC Flagged by Analyzer 0 % (0-5); Neutrophil # 6.24 X10^3/uL (2.7-7.7); Neutrophil % 78.6 % (47-70); Platelet Count 200 K/mm3 (150-450); RBC Distribution Width SD 44.4 fl (35.1-43.9); Red Blood Count 3.98 M/mm3 (4.6-6.2)
[2025-01-29 06:14] LABS: Partial Thromboplast Time 37.7 Seconds (24.1-36.2)
[2025-01-29 06:31] LABS: ALB/GLOB Ratio 1.4 RATIO (0.9-2.4); AST(SGOT) 422 U/L (<=37); Alanine Aminotransfer ALT/SGPT 190 U/L (<=46); Albumin, Serum 3.4 g/dL (3.4-4.8); Alkaline Phosphatase 101 U/L (40-129); Anion Gap 10 (5-15); BUN 22 mg/dL (4-19); BUN/Creat Ratio 22.2 RATIO (10-20); Calcium,Total 8.3 mg/dL (7.6-11.0); Carbon Dioxide 18.4 mmol/L (21.0-32.0); Chloride 109 mmol/L (98-108); Cholesterol 173 mg/dL (<=200); Creatinine, Serum 0.97 mg/dL (0.70-1.20); EST Glomerular Filtration Rate 88 (>60); Estimated Creatinine Clearance 72.17 ml/min (50-250); Globulin 2.4 g/dL (2.2-4.2); Glucose 125 mg/dL (70-99); High Density Lipoprotein 40 mg/dL; Low Density Lipoprotein Calc. 103 mg/dL; Potassium 4.1 mmol/L (3.3-5.1); Protein, Total 5.8 g/dL (5.9-8.4); Sodium Level 137 mmol/L (133-145); Total Bilirubin 0.82 mg/dL (0.00-1.30); Triglycerides 153 mg/dL; Very Low Density Lipoprotein 31 mg/dL (5-40); cholesterol:hdl ratio screen 4.34
[2025-01-29] MEDS: Heparin Injection (Vial) 5,000 UNIT/ML VIAL IV (06:41)
--- NOTE | 2025-01-29 07:44 | PN.CARD_ITS ---
Subjective Subjective Patient reports that he did not feel very well last night was nauseated but did not have any vomiting. He denies any chest discomfort or shortness of breath. His troponins have trended up slightly 1350, 1595, and 1927. LFTs have also increased AST up to 422 and ALT up to 190. Telemetry shows normal sinus rhythm at 74 bpm no significant ectopy. The patient is resting comfortably in the bed this morning. Objective Data Vital Signs: Vital Signs Temp Pulse Resp BP Pulse Ox O2 Del Method 98.5 F 71 16 92/68 94 Room Air 01/29/25 03:35 01/29/25 03:35 01/29/25 03:35 01/29/25 03:35 01/29/25 03:35 01/29/25 03:35 Oxygen Delivery Method Room Air Weight: 166 lb 3.657 oz Body Mass Index (BMI) 26.8 Intake & Output: Intake and Output for Last 24 Hours 01/27/25 01/28/25 01/29/25 23:59 23:59 23:59 Intake Total 2062.85 / 2062.85 1037.63 / 1037.63 Output Total 350 / 350 Balance 2062.85 / 1712.85 687.63 / 687.63 Lab / Micro Data Attestation: I reviewed the patient's lab results. 01/29/25 05:45 01/29/25 05:45 Labs: Laboratory Results - last 24 hr 01/28/25 12:40: WBC 10.3, RBC 4.29 L, Hgb 13.4, Hct 39.4 L, MCV 91.8, MCH 31.2, MCHC 34.0, RDW Std Deviation 42.6, RDW Coeff of Nivia 12.8, Plt Count 234, MPV 10.2, Immature Gran % (Auto) 0.400, Neut % (Auto) 84.6 H, Lymph % (Auto) 8.3 L, [place] % (Auto) 6.7, Eos % (Auto) 0.0, Baso % (Auto) 0.0, Absolute Neuts (auto) 8.7 H, Absolute Lymphs (auto) 0.86, Nucleated RBC % 0, PT 12.9, INR 1.0, APTT 26.6, Sodium 136, Potassium 4.2, Chloride 103, Carbon Dioxide 21.3, Anion Gap 12, BUN 23 H, Creatinine 1.05, Estim Creat Clear Calc 66.67, Est GFR (MDRD) Non- Af 81, BUN/Creatinine Ratio 22.1 H, Glucose 125 H, Calcium 9.4, NT pro BNP II 695 01/28/25 14:50: D-Dimer Quant (PE/DVT) 0.34, Lactic Acid 1.8, Total Bilirubin 0.63, Direct Bilirubin 0.26, AST 228 H, ALT 60 H, Alkaline Phosphatase 63, T roponin T High Sens 1350 H*, Total Protein 6.2, Albumin 3.6, Globulin 2.6, Lipase 01/28/25 15:09: Urine Color Yellow, Urine Clarity Clear, Urine pH 6.0, Ur Specific [place] 1.020, Urine Protein 30 H, Urine Glucose (UA) Normal, Urine Ketones Negative, Urine Occult Blood 10 H, Urine Nitrite Negative, Urine Bilirubin Negative, Urine Urobilinogen Normal, Ur Leukocyte Esterase Negative, Urine RBC 0 SEEN, Urine WBC 0 SEEN, Ur Squamous Epith Cells 0-5 SEEN, Urine Bacteria 0 SEEN, Urine Mucus 1+ 01/28/25 16:48: Magnesium 2.1, Troponin T Hi Sens 2 Hr 1595 H* 01/28/25 19:00: Troponin T Hi Sens 4Hr 1927 H* 01/28/25 21:35: APTT 113.2 H* 01/29/25 05:45: WBC 8.0, RBC 3.98 L, Hgb 12.4 L, Hct 37.2 L, MCV 93.5, MCH 31.2, MCHC 33.3, RDW Std Deviation 44.4 H, RDW Coeff of Nivia 13.0, Plt Count 200, MPV 10.3, Immature Gran % (Auto) 0.500, Neut % (Auto) 78.6 H, Lymph % (Auto) 11.4 L, [place] % (Auto) 9.4, Eos % (Auto) 0.0, Baso % (Auto) 0.1, Absolute Neuts (auto) 6.2, Absolute Lymphs (auto) 0.91, Nucleated RBC % 0, APTT 37.7 H, Sodium 137, Potassium 4.1, Chloride 109 H, Carbon Dioxide 18.4 L, Anion Gap 10, BUN 22 H, Creatinine 0.97, Estim Creat Clear Calc 72.17, Est GFR (MDRD) Non-Af 88, B UN/Creatinine Ratio 22.2 H, Glucose 125 H, Calcium 8.3, Total Bilirubin 0.82, A ST 422 H, ALT 190 H, Alkaline Phosphatase 101, Total Protein 5.8 L, Albumin 3.4, Globulin 2.4, Albumin/Globulin Ratio 1.4, Triglycerides 153, Cholesterol 173, LDL Cholesterol, Calc 103, VLDL Cholesterol 31, HDL Cholesterol 40, Cholesterol/HDL Ratio 4.34 Rhythm Strip Rhythm Strip: Sinus Rhythm Rate: 74 Ectopy: None Cardiology Labs/Tests 01/28/25 12:40: WBC 10.3, RBC 4.29 L, Hgb 13.4, Hct 39.4 L, MCV 91.8, MCH 31.2, MCHC 34.0, Plt Count 234, MPV 10.2, Immature Gran % (Auto) 0.400, Neut % (Auto) 84.6 H, Lymph % (Auto) 8.3 L, [place] % (Auto) 6.7, Eos % (Auto) 0.0, Baso % (Auto) 0.0, Absolute Neuts (auto) 8.7 H, Nucleated RBC % 0, PT 12.9, INR 1.0, APTT 26.6, Sodium 136, Potassium 4.2, Chloride 103, Carbon Dioxide 21.3, Anion Gap 12, BUN 23 H, Creatinine 1.05, Est GFR (MDRD) Non-Af 81, BUN/Creatinine Ratio 22.1 H, Glucose 125 H, Calcium 9.4 01/28/25 14:50: D-Dimer Quant (PE/DVT) 0.34, Lactic Acid 1.8, Total Bilirubin 0.63, Direct Bilirubin 0.26 01/28/25 15:09: Urine Color Yellow, Urine Clarity Clear, Urine pH 6.0, Ur Specific [place] 1.020, Urine Protein 30 H, Urine Glucose (UA) Normal, Urine Ketones Negative, Urine Occult Blood 10 H, Urine Nitrite Negative, Urine Bilirubin Negative, Urine Urobilinogen Normal, Ur Leukocyte Esterase Negative, Urine RBC 0 SEEN, Urine WBC 0 SEEN 01/28/25 16:48: Magnesium 2.1 01/28/25 21:35: APTT 113.2 H* 01/29/25 05:45: WBC 8.0, RBC 3.98 L, Hgb 12.4 L, Hct 37.2 L, MCV 93.5, MCH 31.2, MCHC 33.3, Plt Count 200, MPV 10.3, Immature Gran % (Auto) 0.500, Neut % (Auto) 78.6 H, Lymph % (Auto) 11.4 L, [place] % (Auto) 9.4, Eos % (Auto) 0.0, Baso % (Auto) 0.1, Absolute Neuts (auto) 6.2, Nucleated RBC % 0, APTT 37.7 H, Sodium 137, Potassium 4.1, Chloride 109 H, Carbon Dioxide 18.4 L, Anion Gap 10, BUN 22 H, Creatinine 0.97, Est GFR (MDRD) Non-Af 88, BUN/Creatinine Ratio 22.2 H, G lucose 125 H, Calcium 8.3, Total Bilirubin 0.82, Triglycerides 153, Cholesterol 173, VLDL Cholesterol 31, HDL Cholesterol 40, Cholesterol/HDL Ratio 4.34 Rhythm: EKG: ECHO: Stress Test: Cardiac Cath: PCI: CT Surgery: Holter monitor: EPS: PPM: CXR: Chest CT Scan: Radiography Diagnostic Testing: Radiology Impression Chest X-Ray 01/28/25 15:25 IMPRESSION: NO ACUTE FINDINGS. Reading Location: [facility] Physical Exam Const alert and oriented x3 HEENT normocephalic Eyes EOMs intact bilaterally Neck no JVD Chest inspection of chest normal Resp normal respiratory effort and clear to auscultation bilaterally Cardio Rate: regular rate Rhythm: regular rhythm Heart Sounds: S1 normal and S2 normal; Negative for click, gallop or murmur GI non-tender Extremity no pedal edema Neuro Neuro Narrative: Alert and oriented x 3 Psych mental status grossly normal Assessment & Plan Assessment/Plan (1) Non-ST elevation [place] (NSTEMI): PLAN: Patient's ECG, his troponins, is mildly elevated LFTs, and GI symptoms are suggestive of a right ventricular infarct. The patient's enzymes have continued to trend upward they are at 1927 this morning. Patient is scheduled for an echocardiogram and left heart catheterization this morning. Further recommendations to be forthcoming once that information is available. Catheterization revealed severe left main trunk lesion, proximal LAD significant disease as well as OM 1 and OM 2 branches of the circumflex. The patient's right coronary is totally obstructed at the ostium after a conus branch. The echocardiogram was consistent with an inferior septal infarct and RV enlargement consistent with the RV infarct. (2) Hypertension: QUALIFIERS: Hypertension type: primary hypertension Qualified Code(s): I10 - Essential (primary) hypertension PLAN: Patient's blood pressures been on the low side despite fluid resuscitation yesterday's systolic blood pressures in the 90?95 range. His losartan has been on hold. (3) High blood cholesterol: PLAN: Patient's lipid profile showed a total cholesterol of 173 triglycerides 153 LDL 103 and HDL 40. The patient is on no statin therapy in his home environment. He was placed on intensive statin therapy here at 80 mg daily. We will put that on hold until we can ascertain the etiology of his elevated LFTs. PLAN: Plan 1. Will transfer the patient to the [facility] for urgent coronary bypass graft surgery. Dr. Pham is the accepting physician. 2. Will hold atorvastatin until the etiology of the elevated LFTs is elucidated. 3. Will reinstitute IV heparin without a bolus at 2 hours after the cath. Charges/Coding Visit Charges Inpatient E&M: 47868 Subs Hosp L3
--- NOTE | 2025-01-29 07:59 | PN.HOSP_ITS ---
Reason for Visit Reason for Visit: Diagnoses Pure hypercholesterolemia, unspecified (01/28/25) Essential (primary) hypertension (01/28/25) Non-ST elevation (NSTEMI) myocardial infarction (01/28/25) Right upper quadrant pain (01/28/25) Subjective Subjective Feeling better. Objective Data Objective Data Vital Signs: Vital Signs Temp Pulse Resp BP Pulse Ox O2 Del Method 36.9 C 71 16 92/68 94 Room Air 01/29/25 03:35 01/29/25 03:35 01/29/25 03:35 01/29/25 03:35 01/29/25 03:35 01/29/25 03:35 Oxygen Delivery Method Room Air Weight: 75.4 kg Body Mass Index (BMI) 26.8 Intake & Output: Intake and Output for Last 24 Hours 01/27/25 01/28/25 01/29/25 23:59 23:59 23:59 Intake Total 2062.85 / 2062.85 1037.63 / 1037.63 Output Total 350 / 350 Balance 2062.85 / 1712.85 687.63 / 687.63 Lab / Micro Data 01/29/25 05:45 01/29/25 05:45 Labs: Laboratory Results - last 24 hr 01/28/25 12:40: WBC 10.3, RBC 4.29 L, Hgb 13.4, Hct 39.4 L, MCV 91.8, MCH 31.2, MCHC 34.0, RDW Std Deviation 42.6, RDW Coeff of Nivia 12.8, Plt Count 234, MPV 10.2, Immature Gran % (Auto) 0.400, Neut % (Auto) 84.6 H, Lymph % (Auto) 8.3 L, [place] % (Auto) 6.7, Eos % (Auto) 0.0, Baso % (Auto) 0.0, Absolute Neuts (auto) 8.7 H, Absolute Lymphs (auto) 0.86, Nucleated RBC % 0, PT 12.9, INR 1.0, APTT 26.6, Sodium 136, Potassium 4.2, Chloride 103, Carbon Dioxide 21.3, Anion Gap 12, BUN 23 H, Creatinine 1.05, Estim Creat Clear Calc 66.67, Est GFR (MDRD) Non- Af 81, BUN/Creatinine Ratio 22.1 H, Glucose 125 H, Calcium 9.4, NT pro BNP II 695 01/28/25 14:50: D-Dimer Quant (PE/DVT) 0.34, Lactic Acid 1.8, Total Bilirubin 0.63, Direct Bilirubin 0.26, AST 228 H, ALT 60 H, Alkaline Phosphatase 63, T roponin T High Sens 1350 H*, Total Protein 6.2, Albumin 3.6, Globulin 2.6, Lipase 25 01/28/25 15:09: Urine Color Yellow, Urine Clarity Clear, Urine pH 6.0, Ur Specific [place] 1.020, Urine Protein 30 H, Urine Glucose (UA) Normal, Urine Ketones Negative, Urine Occult Blood 10 H, Urine Nitrite Negative, Urine Bilirubin Negative, Urine Urobilinogen Normal, Ur Leukocyte Esterase Negative, Urine RBC 0 SEEN, Urine WBC 0 SEEN, Ur Squamous Epith Cells 0-5 SEEN, Urine Bacteria 0 SEEN, Urine Mucus 1+ 01/28/25 16:48: Magnesium 2.1, Troponin T Hi Sens 2 Hr 1595 H* 01/28/25 19:00: Troponin T Hi Sens 4Hr 1927 H* 01/28/25 21:35: APTT 113.2 H* 01/29/25 05:45: WBC 8.0, RBC 3.98 L, Hgb 12.4 L, Hct 37.2 L, MCV 93.5, MCH 31.2, MCHC 33.3, RDW Std Deviation 44.4 H, RDW Coeff of Nivia 13.0, Plt Count 200, MPV 10.3, Immature Gran % (Auto) 0.500, Neut % (Auto) 78.6 H, Lymph % (Auto) 11.4 L, [place] % (Auto) 9.4, Eos % (Auto) 0.0, Baso % (Auto) 0.1, Absolute Neuts (auto) 6.2, Absolute Lymphs (auto) 0.91, Nucleated RBC % 0, APTT 37.7 H, Sodium 137, Potassium 4.1, Chloride 109 H, Carbon Dioxide 18.4 L, Anion Gap 10, BUN 22 H, Creatinine 0.97, Estim Creat Clear Calc 72.17, Est GFR (MDRD) Non-Af 88, B UN/Creatinine Ratio 22.2 H, Glucose 125 H, Calcium 8.3, Total Bilirubin 0.82, A ST 422 H, ALT 190 H, Alkaline Phosphatase 101, Total Protein 5.8 L, Albumin 3.4, Globulin 2.4, Albumin/Globulin Ratio 1.4, Triglycerides 153, Cholesterol 173, LDL Cholesterol, Calc 103, VLDL Cholesterol 31, HDL Cholesterol 40, Cholesterol/HDL Ratio 4.34 Radiography Diagnostic Testing: Radiology Impression Chest X-Ray 01/28/25 15:25 IMPRESSION: NO ACUTE FINDINGS. Reading Location: [facility] Rhythm Strip Rhythm Strip: Sinus Rhythm Rate: 74 Ectopy: None Physical Exam Const alert and no apparent distress HEENT head/scalp atraumatic and moist oral mucous membranes Resp normal respiratory effort, no retractions, no use of accessory muscles and clear to auscultation bilaterally Cardio regular rate, regular rhythm, S1 normal heart sound and S2 normal heart sound GI normal to inspection, nondistended, normoactive bowel sounds, soft to palpation, non-tender and non-distended Assessment & Plan Assessment/Plan (1) Non-ST elevation [place] (NSTEMI): PLAN: Troponins peaked at 1927 On ASA, atorvastatin and heparin gtt. LHC showed left main disease. DW cardiology, pt to be transferred to [facility] for evaluation for CABG. PLAN: Plan VTE prophylaxis: not indicated as already anticoagulated. Charges/Coding Visit Charges Inpatient E&M: 25360 Subs Hosp L2
--- NOTE | 2025-01-29 10:34 | NURSING ---
Report called to nurse Edmundo RN for pt to go to lab asst for heart cath.
--- NOTE | 2025-01-29 12:49 | CASEMGMT ---
Insurance review for hospitals [facility] if transfer is recommended is as follows: [facility], [facility], [place], [facility], [facility], [facility], , [place], [facility], [facility], and [place]. Aleshia Hanna, Discharge Planning Asst.
--- NOTE | 2025-01-29 12:53 | CASEMGMT ---
KIARA NG Assessment Face to Face with patient for initial transition planning/care coordination assessment. KIARA NG introduced self and role at [facility], pt voices understanding. Pt is A&Ox4 and is resting comfortably in bed and is calm. Pt at bedside. Care providers, pharmacy, and demographics verified. Admitting dx: NSTEMI LACE Strata: 1 PCP: Zohaib Lyon Specialists: None. Cardio is currently consulted Preferred Pharmacy: [facility] Insurance: ANTHEM Prescription Benefit: Yes LNOK: Brianna Hermosillo (W) Living Arrangements: Pt lives with his in a 2 story home with a FFSU and 2 steps to enter ADLs/IADLs: Ind Transportation: Self, DME: [employer]. Denies further DME uses or needs HHC/SNF: denies Pt?s goal: Return to PLOF Plan: At the end of this KIARA NG's assessment, pt and pt's report that the pt is requiring transfer to a tertiary facility. A list of local in-network tertiary facilities has been entered by CHRISTINA Monk capacity planning engineer. See note. Pt and pt's deny further questions, concerns, or needs at this time. Lauren Curiel RN, CM
[2025-01-29 21:41] LABS: Partial Thromboplast Time 42.1 Seconds (24.1-36.2)
[2025-01-29] MEDS: Atorvastatin Calcium 80 MG Tablet PO (22:23)
[2025-01-30 03:15] VITALS: BP 94/69; PULSE 79; RESP 16; TEMP 36.6; O2SAT 94
[2025-01-30 04:42] LABS: Hematocrit 34.6 % (40-54); Hemoglobin 11.9 g/dL (13.0-16.5); Mean Corp Hgb Conc 34.4 g/dL (32-36); Mean Corpuscular Hgb 32.1 pg (27.0-32.0); Mean Corpuscular Volume 93.3 fL (80-94); Mean Platelet Vol. 10.2 fl (6.2-12.0); Platelet Count 164 K/mm3 (150-450); RBC Distribution Width CV 13.2 % (11.6-14.6); RBC Distribution Width SD 45.2 fl (35.1-43.9); Red Blood Count 3.71 M/mm3 (4.6-6.2); White Blood Count 7.1 K/mm3 (4.4-11.0)
[2025-01-30 04:52] LABS: Partial Thromboplast Time 47.6 Seconds (24.1-36.2)
[2025-01-30 04:59] LABS: Prothrombin Time (Protime)PT. 13.7 SECONDS (11.7-14.9)
[2025-01-30 05:10] VITALS: BMI 27.4
[2025-01-30 05:22] LABS: Anion Gap 8 (5-15); BUN 23 mg/dL (4-19); BUN/Creat Ratio 25.4 RATIO (10-20); Calcium,Total 8.2 mg/dL (7.6-11.0); Carbon Dioxide 19.9 mmol/L (21.0-32.0); Chloride 108 mmol/L (98-108); Creatinine, Serum 0.92 mg/dL (0.70-1.20); EST Glomerular Filtration Rate 94 (>60); Estimated Creatinine Clearance 82.48 ml/min (50-250); Glucose 114 mg/dL (70-99); Potassium 4.2 mmol/L (3.3-5.1); Sodium Level 136 mmol/L (133-145)
[2025-01-30] MEDS: HEPARIN/D5w 25,000 UNITS 25,000 UNITS/250 ML IV.SOLN. 10 UNITS CONT INF (05:41)
[2025-01-30 07:57] VITALS: O2SAT 93
[2025-01-30] MEDS: Aspirin E.C. 81 MG Tablet PO (08:08)
--- NOTE | 2025-01-30 08:14 | PCM.PN.HOSP ---
Reason for Visit Reason for Visit: Diagnoses Pure hypercholesterolemia, unspecified (01/28/25) Essential (primary) hypertension (01/28/25) Non-ST elevation (NSTEMI) myocardial infarction (01/28/25) Right upper quadrant pain (01/28/25) Objective Data Objective Data Vital Signs: Vital Signs Temp Pulse Resp BP Pulse Ox O2 Del Method 36.6 C 79 16 94/69 94 Room Air 01/30/25 03:15 01/30/25 03:15 01/30/25 03:15 01/30/25 03:15 01/30/25 03:15 01/30/25 08:03 Oxygen Delivery Method Room Air Weight: 77.2 kg Body Mass Index (BMI) 27.4 Intake & Output: Intake and Output for Last 24 Hours 01/28/25 01/29/25 01/30/25 23:59 23:59 23:59 Intake Total 2062.85 / 2062.85 1980.30 / 1980.30 71.18 / 71.18 Output Total 350 / 350 Balance 2062.85 / 1712.85 1630.30 / 1630.30 70.18 / 70.18 Lab / Micro Data 01/30/25 04:25 01/30/25 04:25 Labs: Laboratory Results - last 24 hr 01/29/25 21:08: APTT 42.1 H 01/30/25 04:25: WBC 7.1, RBC 3.71 L, Hgb 11.9 L, Hct 34.6 L, MCV 93.3, MCH 32.1 H, MCHC 34.4, RDW Std Deviation 45.2 H, RDW Coeff of Nivia 13.2, Plt Count 164, MPV 10.2, PT 13.7, INR 1.0, APTT 47.6 H, Sodium 136, Potassium 4.2, Chloride 108, Carbon Dioxide 19.9 L, Anion Gap 8, BUN 23 H, Creatinine 0.92, Estim Creat Clear Calc 82.48, Est GFR (MDRD) Non-Af 94, BUN/Creatinine Ratio 25.4 H, Glucose 114 H, Calcium 8.2 Radiography Diagnostic Testing: Radiology Impression Echocardiogram 01/28/25 18:07 Interpretation Summary Normal LV size. Left ventricular systolic function is normal. The left ventricular ejection fraction is 50 %. Stage 1 diastolic dysfunction. Mild segmental systolic dysfunction (see wall motion). Ordering Physician: Pastora Perez Referring Physician: Zohaib Lyon Performed By: Yamilka Ford, DAPHNEY, RVT Rhythm Strip Rhythm Strip: Sinus Rhythm Rate: 74 Ectopy: None Assessment & Plan Assessment/Plan (1) Non-ST elevation [place] (NSTEMI): PLAN: Troponins peaked at 1927 On ASA, atorvastatin and heparin gtt. LHC showed left main disease. DW cardiology, pt to be transferred to [facility] for evaluation for CABG. PLAN: Plan VTE prophylaxis: not indicated as already anticoagulated.
[2025-01-30 08:17] LABS: AST(SGOT) 309 U/L (<=37); Alanine Aminotransfer ALT/SGPT 303 U/L (<=46); Albumin, Serum 3.2 g/dL (3.4-4.8); Alkaline Phosphatase 191 U/L (40-129); Globulin 2.6 g/dL (2.2-4.2); Protein, Total 5.8 g/dL (5.9-8.4); Total Bilirubin 1.08 mg/dL (0.00-1.30)
[2025-01-30 08:19] VITALS: BP 99/70; PULSE 77; RESP 15; TEMP 36.6; O2SAT 92
--- NOTE | 2025-01-30 08:22 | PN.CARD_ITS ---
Subjective Subjective Patient reports that he is feeling better he still has some mild GI upset but no nausea or vomiting to mention. He denies any issues with his right groin or his right wrist. He has had no recurrence of the profound shortness of breath that he had that led to his hospitalization. Patient's blood pressure has been in the 90?100 systolic range telemetry shows normal sinus rhythm at 86 bpm. LFTs need to be rechecked if they are increasing would recommend holding the statin therapy at this time. It is highly likely that this is related to her right ventricular infarct pattern and hepatic congestion. Objective Data Vital Signs: Vital Signs Temp Pulse Resp BP Pulse Ox O2 Del Method 97.9 F 77 15 99/70 92 Room Air 01/30/25 08:19 01/30/25 08:19 01/30/25 08:19 01/30/25 08:19 01/30/25 08:19 01/30/25 08:19 Oxygen Delivery Method Room Air Weight: 170 lb 3.15 oz Body Mass Index (BMI) 27.4 Intake & Output: Intake and Output for Last 24 Hours 01/28/25 01/29/25 01/30/25 23:59 23:59 23:59 Intake Total 2062.85 / 2062.85 1980.30 / 1980.30 71.18 / 71.18 Output Total 350 / 350 Balance 2062.85 / 1712.85 1630.30 / 1630.30 70.18 / 70.18 Lab / Micro Data Attestation: I reviewed the patient's lab results. 01/30/25 04:25 01/30/25 04:25 Labs: Laboratory Results - last 24 hr 01/29/25 21:08: APTT 42.1 H 01/30/25 04:25: WBC 7.1, RBC 3.71 L, Hgb 11.9 L, Hct 34.6 L, MCV 93.3, MCH 32.1 H, MCHC 34.4, RDW Std Deviation 45.2 H, RDW Coeff of Nivia 13.2, Plt Count 164, MPV 10.2, PT 13.7, INR 1.0, APTT 47.6 H, Sodium 136, Potassium 4.2, Chloride 108, Carbon Dioxide 19.9 L, Anion Gap 8, BUN 23 H, Creatinine 0.92, Estim Creat Clear Calc 82.48, Est GFR (MDRD) Non-Af 94, BUN/Creatinine Ratio 25.4 H, Glucose 114 H, Calcium 8.2, Total Bilirubin 1.08, Direct Bilirubin 0.60 H, AST 309 H, A LT 303 H, Alkaline Phosphatase 191 H, Total Protein 5.8 L, Albumin 3.2 L, Globulin 2.6 Rhythm Strip Rhythm Strip: Sinus Rhythm Rate: 86 Ectopy: None Cardiology Labs/Tests 01/29/25 21:08: APTT 42.1 H 01/30/25 04:25: WBC 7.1, RBC 3.71 L, Hgb 11.9 L, Hct 34.6 L, MCV 93.3, MCH 32.1 H, MCHC 34.4, Plt Count 164, MPV 10.2, PT 13.7, INR 1.0, APTT 47.6 H, Sodium 136, Potassium 4.2, Chloride 108, Carbon Dioxide 19.9 L, Anion Gap 8, BUN 23 H, Creatinine 0.92, Est GFR (MDRD) Non-Af 94, BUN/Creatinine Ratio 25.4 H, Glucose 114 H, Calcium 8.2, Total Bilirubin 1.08, Direct Bilirubin 0.60 H Rhythm: EKG: ECHO: Stress Test: Cardiac Cath: PCI: CT Surgery: Holter monitor: EPS: PPM: CXR: Chest CT Scan: Radiography Diagnostic Testing: Radiology Impression Echocardiogram 01/28/25 18:07 Interpretation Summary Normal LV size. Left ventricular systolic function is normal. The left ventricular ejection fraction is 50 %. Stage 1 diastolic dysfunction. Mild segmental systolic dysfunction (see wall motion). Ordering Physician: Pastora Perez Referring Physician: Zohaib Lyon Performed By: Yamilka Ford, RDCS, RVT Physical Exam Const alert and oriented x3 HEENT normocephalic Eyes EOMs intact bilaterally Neck no JVD Chest inspection of chest normal Resp normal respiratory effort and clear to auscultation bilaterally Cardio Rate: regular rate Rhythm: regular rhythm Heart Sounds: S1 normal and S2 normal; Negative for click, gallop or murmur GI soft to palpation Extremity no pedal edema Extremity Narrative: Right groin shows no hematoma no bruit. Right wrist shows no hematoma with good sensation in the hand and normal capillary refill. Neuro Neuro Narrative: Alert and oriented x 3 Psych mental status grossly normal Assessment & Plan Assessment/Plan (1) Non-ST elevation [place] (NSTEMI): PLAN: Patient denies any recurrence of his symptoms that led to his admission. He does have some mild GI upset that is hanging on. We will recheck his liver function test today. It does appear that his right ventricular infarct caused some hepatic congestion that was present on admission. He was approximately 24 hours after his acute event when he was admitted. The patient has severe disease in the left main trunk LAD and circumflex branch. He also has an occluded ostium of the right coronary artery with a separate origin of a conus branch. The distal right coronary fills faintly via collateral flow. His echocardiogram shows wall motion abnormality the distribution of the right coronary artery. Overall his left ventricular systolic systolic function is estimated 50%. The patient has been accepted to the [facility] for transfer for surgical intervention. 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 The cath films and his echo films have been transmitted via PACS to the [facility]. (2) High blood cholesterol: PLAN: Patient has been started on atorvastatin 80 mg daily. However with his elevated LFTs we are rechecking them today. If they continue to go up we will hold the atorvastatin until his LFTs is returned back toward baseline and then reinstituted. (3) Hypertension: QUALIFIERS: Hypertension type: primary hypertension Qualified Code(s): I10 - Essential (primary) hypertension PLAN: The blood pressure has been in the 90?100 systolic range since admission consistent with a right ventricular infarct. At home he was on losartan 50 mg daily for his hypertension. His only other home medication was vitamin D3 and multivitamin. PLAN: Plan 1. Will check LFTs today and address statin therapy accordingly. 2. Continue with IV heparin and await transfer to the [facility]. Charges/Coding Visit Charges Inpatient E&M: 43195 Subs Hosp L3
--- NOTE | 2025-01-30 10:51 | NURSING ---
report called to Bal Chan at [facility] [phone]
[2025-01-30 10:57] VITALS: BP 91/68; PULSE 75; RESP 14; TEMP 36.7; O2SAT 93
[2025-01-30 11:36] LABS: Partial Thromboplast Time 54.9 Seconds (24.1-36.2)
--- NOTE | 2025-01-30 11:38 | DS.PCM_ITS ---
Providers Date of Admission: 01/28/25 Primary Care Physician: Dr. Zohaib Lyon MD Consultations 01/28/25 18:07 Consult: Cardiology Routine Consulting Provider: Dayne Sin Reason for Consult: NSTEMI EMERGENT Consult: No MD Notified: Yes Date Notified: 01/28/25 Time Notified: 16:51 Method of Notification: ED Physician Initiated Reason For Visit: NSTEMI Diagnosis Discharge Diagnosis (1) Non-ST elevation [place] (NSTEMI): Status: Acute Code(s): I21.4 - Non-ST elevation (NSTEMI) myocardial infarction Plan: Troponins peaked at 1927 On ASA, atorvastatin and heparin gtt. LHC showed left main disease. DW cardiology, pt transferred to [facility] for evaluation for CABG. (2) High blood cholesterol: Status: Acute Code(s): E78.00 - Pure hypercholesterolemia, unspecified (3) Hypertension: Status: Chronic Code(s): I10 - Essential (primary) hypertension Qualifiers: Hypertension type: primary hypertension Qualified Code(s): I10 - Essential (primary) hypertension Plan VTE prophylaxis: not indicated as already anticoagulated. Medications at Discharge Home Medications cholecalciferol (vitamin D3) 125 mcg (5,000 unit) tablet (Vitamin D3) 125 mcg PO DAILY 01/28/25 losartan 50 mg tablet 50 mg PO DAILY 01/28/25 multivitamin (Daily Multi-Vitamin tablet) 1 tab PO DAILY 01/28/25 Hospital Course Operations None Procedures 2-D Echocardiogram and Cardiac catheterization Summary of Care Provided Hospital Course: Patient has non-STEMI. Patient was found to have a left main disease on his cath. Decision was made to transfer the patient for evaluation for CABG. Patient was excepted [facility] and was discharged today. Weight / BMI Weight Weight: 77.2 kg Body Mass Index (BMI) 27.4 ABG / Lab / Microbiology Data 01/30/25 04:25 01/30/25 04:25 Laboratory: Laboratory Results - last 24 hr 01/29/25 21:08: APTT 42.1 H 01/30/25 04:25: WBC 7.1, RBC 3.71 L, Hgb 11.9 L, Hct 34.6 L, MCV 93.3, MCH 32.1 H, MCHC 34.4, RDW Std Deviation 45.2 H, RDW Coeff of Nivia 13.2, Plt Count 164, MPV 10.2, PT 13.7, INR 1.0, APTT 47.6 H, Sodium 136, Potassium 4.2, Chloride 108, Carbon Dioxide 19.9 L, Anion Gap 8, BUN 23 H, Creatinine 0.92, Estim Creat Clear Calc 82.48, Est GFR (MDRD) Non-Af 94, BUN/Creatinine Ratio 25.4 H, Glucose 114 H, Calcium 8.2, Total Bilirubin 1.08, Direct Bilirubin 0.60 H, AST 309 H, A LT 303 H, Alkaline Phosphatase 191 H, Total Protein 5.8 L, Albumin 3.2 L, Globulin 2.6 01/30/25 11:00: APTT 54.9 H D/C Instructions DC O2, CPAP, BIPAP Needs Home O2 Discharge instructions: No Meaningful Use Info Meaningful Use Meaningful Use Diagnoses (Choose all that apply): AMI AMI/Post PCI/Angioplasty Aspirin given w/in 24hrs of arrival?: Yes ASA at discharge?: Yes Statins at discharge?: Yes Carlos/ARB at discharge?: Yes Beta Joe at discharge?: Yes Done w/ Acute ID measure.: Yes Ischemic Stroke Statin Dosing Therapy Reference: STATIN DOSE THERAPY REFERENCE: * Patients > 75 years receive moderate or high dose statin therapy. * Patients 75 years or YOUNGER should receive HIGH intensity statin dose unless contraindicated. You will be required to document reason for non-treatment if statin daily dose does not meet guidelines. HIGH DOSE STATIN THERAPY DAILY Atorvastatin > than or = to 40 mg Rosuvastatin > than or = to 20 mg Amlodipine + Atorvastatin > than or = to 2.5/40 mg Ezetimibe + Simvastatin 10/80 mg Simvastatin 80mg Discharge Plan Admission Admit Date/Time: 01/28/25 16:50 Primary Reason for Your Visit: NSTEMI Attending Provider: Sarwat Dotson Primary Care Provider: Zohaib Lyon Consulting Providers: Dayne Sin; Pastora Perez Discharge Orders/Prescriptions Prescriptions: No Action losartan 50 mg tablet 50 mg PO DAILY multivitamin [Daily Multi-Vitamin] Tablet 1 tab PO DAILY cholecalciferol (vitamin D3) [Vitamin D3] 125 mcg (5,000 unit) tablet 125 mcg PO DAILY Referrals / Follow Up: Zohaib Lyon MD [Primary Care Provider] - Disposition Disposition (needs filled in before D/C Order can be placed): DC/Tx to Another Type of HCF
--- NOTE | 2025-01-30 12:16 | NURSING ---
called Mey chinchilla at [facility] let her know ptt 54.9 continue current rate of heparin
--- NOTE | 2025-02-04 14:40 | CL.D_ITS ---
Patient Name: WARREN HONG Study Date: 01/29/2025 Performing: Derek Telles MD Ht: 66 inches 167.64 cm : 1965 Wt: 166.4 lbs 75.4 kg Age: 59 Gender: male BSA: 1.85 PROCEDURE(S) PERFORMED DC02-([id number])LHC/COR DC11-([id number])AO ROOT ANGIO WITH HEART CATH CLINICAL PROFILE AND INDICATIONS Indications: Suspected CAD Heart Failure: None Stress/Imaging Stress/Image Study Performed: No CAD Presentations: Non-STEMI. Symptom onset Date/Time: 01/28/25 Time Not Available CONCLUSIONS Severe triple-vessel disease including a distal left main coronary artery, proximal ramus intermedius and obtuse marginal branch and totally occluded right coronary artery, mild left ventricular systolic dysfunction with [id number] collaterals. Right-sided aortic arch noted with calcification RECOMMENDATIONS Will recommend coronary bypass surgery and a CT angio to further evaluate the configuration of the right sided aortic arch and the great vessels arising there from. DESCRIPTION OF PROCEDURE The patient arrived to the procedure lab. The risks and benefits of the procedure as well as a full description of our services here and current unavailability of surgical backup were fully explained to the patient and/or their significant other prior to the catheterization. The Timeout was completed, verifying the correct patient and procedure. The patient's procedural site was prepped and draped in the usual fashion. Local anesthetic was given subcutaneously to right radial region with Lidocaine 2%. Local anesthetic was given subcutaneously to right groin region with Lidocaine 2%. Using a modified Seldinger technique, arterial access was obtained via the right radial artery, a 6Fr sheath was inserted., arterial access was obtained via the right femoral artery, a 5Fr sheath was inserted. Left Coronary Artery selective angiography was performed in multiple views using a 5 Fr. JL4 catheter.Contrast was injected through the sheath and the Right Iliac and Femoral artery were assessed for possible closure device.The arterial sheath was pulled and manual compression applied until hemostasis is achieved.. The arterial sheath was pulled and a TR Band was applied for hemostasis 10 ml of air CORONARY ANGIOGRAPHY DOMINANCE: Right Dominant LEFT HEART ASSESSMENT Left Ventricular Ejection Fraction: by Echo 50 % Inferior Mid Hypokinesis - Severe LEFT MAIN: Distal 90% stenosis noted LEFT ANTERIOR DESCENDING ARTERY: Medium size vessel with mild disease no high-grade obstruction noted CIRCUMFLEX ARTERY: OM 1: Proximal - First obtuse marginal branch with proximal 80% stenosis present RAMUS: Proximal 70% stenosis present with [id number] collaterals RIGHT CORONARY ARTERY: OSTIAL RCA: is occluded COLLATERAL FLOW: Collateral flow from Left to Right AORTIC ROOT: Patient appears to have a right sided aortic arch with some calcification. COMPLICATIONS No Complications PROCEDURE MEDICATIONS Fentanyl 50 mcg IV Versed 1 mg IV Oxygen: 2 L/min via nasal cannula Heparin given IA 01/29/2025 11:04:27 SUMMARY OF HEMODYNAMIC DATA Time AIR REST ECG 10:41:51 Art 100/65 (78) 11:06:43 AO 90/70 (79) SA 11:18:12 Signed By Derek Telles MD On 02/04/2025 14:39:02 Derek Telles MD
== END 2025-01-30 11:13 | disposition other institution (70) | DRG 282 ==
LOC: ED 16:10 → PCU 17:49
PROVIDERS: Internal Medicine Cardiovascular Disease; Admitting Provider Family Medicine; Emergency Provider Emergency Medicine; PCP Family Medicine
DX: I21.4 Non-ST elevation (NSTEMI) myocardial infarction (principal); K76.1 Chronic passive congestion of liver; E86.1 Hypovolemia; I12.9 Hypertensive chronic kidney disease with stage 1 through stage 4 chronic kidney disease, or unspecified chronic kidney disease; N18.2 Chronic kidney disease, stage 2 (mild); E78.00 Pure hypercholesterolemia, unspecified; I25.10 Atherosclerotic heart disease of native coronary artery without angina pectoris; R03.1 Nonspecific low blood-pressure reading; Z75.1 Person awaiting admission to adequate facility elsewhere
CPT/HCPCS: 36415; 71046; 80048; 80053; 80061; 80076; 81001; 83605; 83690; 83735; 83880; 84484; 85025; 85027; 85379; 85610; 85730; 93005; 93306; 93454; 93567; 94668; 94760; 99152; 99153; 99284; C1894; Q9957; Q9967; A4216; C1769; C8929; J2405

== ENCOUNTER → 2025-03-07 | Outpatient (CLI) | payer BC, SELFPAY ==
--- NOTE | 2025-03-07 13:05 | CR.HP_ITS ---
CR - History & Physical General Arrival date:: 03/07/25 Arrival time:: 13:05 Date of Referral:: 02/28/25 Date of CR Evaluation:: 03/07/25 Referring Physician: Dr. Woodruff Primary Diagnosis: S/P CABG History of Present Cardiac Event Onset Date Coronary Artery Bypass Graft:: Yes (onset 02/04/25) Vessel: DORMAN-LAD, [id number] Cx sequentially, Tvr (MC3 28 mm) Heart valve replacement or repair:: Yes (Tricuspid Valve repair ) Medications Ambulatory Orders ?Medication ?Instructions ?Recorded cholecalciferol (vitamin D3) 125 125 mcg PO DAILY 01/17 11/13 mcg (5,000 unit) tablet (Vitamin D3) losartan 50 mg tablet 50 mg PO DAILY 01/28/25 multivitamin (Daily Multi-Vitamin 1 tab PO DAILY 01/28 tablet) Allergies Allergies No Known Allergies Allergy (Verified 01/28/25 11:51) Sleep Disorder Evaluation Hx of Sleep Apnea: Yes Do you snore loudly (louder than talking or can be heard through closed doors)?: No Do you often feel tired/ fatigued/ sleepy during daytime?: No Has anyone observed you stop breathing during sleep?: No History of Hypertension (for STOP score): Yes STOP Results: Negative Advanced Directives Advanced Directives Do you have a Healthcare Power of Necktie Maker?: No Living Will: No Advance Directives Information Provided: No Advance Directives on File: No DNR Order?:: No Past Medical History Covid-19 Screening Physicial Symptoms Other Clinical Concerns Exposure Risk Pertinent Comorbidities Has a serious heart condition:: Yes Past Medical Illness Medical History High blood cholesterol Hypertension Medical History no medical history Past Surgical History Surgical History H/O hand surgery Surgical History no surgical history Family History Summary Family History (Updated 01/28/25 @ 17:[address] Pastora Perez MD) Mother , age 84. Liver cancer Father , No medical history, age 93. No problems noted. Social History Smoking History Smoking Status: Never smoker Substance Abuse Hx Substance Use: No Occupation Occupation (List type of work in comments):: Employed Hours worked per day:: 8 Social Environment Status Marital Status: Current Living Arrangements Living Environment:: Spouse Children How many children do you have?: 2 Do any of your children live nearby?: No Safety Do you feel safe in your surroundings?: Yes Assistance Do you need any assistance at home?: no Review of Systems Review of Systems Hints Review of Present Symptoms: Reports Operative Discomfort, Angina, Fatigue and Appetite - Special Diet; Denies Shortness of Breath at Rest, Shortness of Breath with Exertion, PVD, Wound Healing, Dizziness/Lightheadedness, Heart Arrh ythmia/Irregularities, Appetite - Normal, Sleep - Normal or Sexual Changes Pain Is Patient Pain Free?: Yes Risk Factor Assessment Chief Complaint Chief Complaint: S/P CABG Vital Signs Pulse Ox: 98 Blood Pressure: 102/70 Pulse Pulse Rate: 91 Hypertension Blood Pressure Sitting - Right Arm: 102/70 Stress Stress: Work-related Obesity Height: 5 ft 6 in Weight:: 145 lb Weight in Pounds: 145.0 lbs Body Mass Index (BMI): 23.3 Nutritional Referral for Obesity: No Physical Inactivity Physical Inactivity: Reg Exercise 30 min/day (walking) Risk Stratification Risk Guidelines: Lowest Risk: Risk Factor for Obesity and Moderate Risk: Risk Factor for Smoking, Risk Factor for Dyslipidemia, Risk Factor for Diabetes, Risk Factor for Hypertension, Risk Factor for Sedentary Lifestyle and Risk Factor for Depression For Smoking Smoking Risk Guidelines For Dyslipidemia Dyslipidemia Risk Guidelines For Diabetes Mellitus Diabetes Risk Guidelines For Obesity/Overweight Obesity/Overweight Risk Guidelines For Hypertension Hypertension Risk Guidelines For Sedentary Lifestyle Sedentary Lifestyle Risk Guidelines For Depression Depression Risk Guidelines Family History Family History (Updated 01/28/25 @ 17:[address] Pastora Perez MD) Mother Liver cancer Father No problems noted. Motivation Motivation to Participate On a scale of 1 to 10, how prepared are you to commit to attending program?: 9 What do you see as barriers to successfully being able to complete the program?: nothing What do you see as the benefits of succesfully completing the program? In other words, what do you hope to get out of participating in the program?: more energy Are there issues you are dealing with that will interfere with completing the program?: no Do you have a spouse or signficant other, family or friends who will help support you to complete the program?: yes
[2025-03-07 13:14] VITALS: BP 102/70; PULSE 91; O2SAT 98
--- NOTE | 2025-03-07 13:14 | PCM.CR.ITP ---
Diagnosis General Information Admitting Diagnosis: S/P CABG Personal Learning Style:: Audio/Visual Barriers to Learning: No Barriers Stage of change r/t lifestyle modifications:: Contemplation Gave educational material for:: Treating Heart Disease, How The Heart Works, What it means to have Heart Disease, How Coronary Artery Disease is Diagnosed, Heart Procedures, What Heart Medications Do, Risk Factors & Modifications, Living an Active Life, Nutrition, Emotions & Heart Disease, Stress Management & Relaxation and Sleep Disorders & Heart Disease Education/Goals Cardiac Rehabilitation Goals Personal Goals: Initial Assessment: Improve management of stress and emotions, Improve energy level, Participate in home exercise program, Get back to work, or to resume activities faster, Improve knowledge of cardiac disease, Improve muscle strength and endurance, Improve diet and eating habits (eat healthier), Control risk factors (learn risk factor modification) and Other goal: Scale for measuring improvement of personal goals Diagnosis & Disease Process Outcomes/Goals: Pt IDs own risk factors & lifestyle modifications by Session 10, Verbalizes symptoms of angina & response by session 3., Pt independently manages and Other Additional Outcomes/Goals: Plan/Interventions: Assist Pt to ID & engage in lifestyle modification to reduce CVD risk, Instruct on individual risk factors, Review symptoms of angina & emergency actions, Review secondary diagnosis & identify educational needs. and Other see comment 30 day Reassessments:: Not Met 30 day Reassessments:: Not Met 30 day Reassessments:: Not Met 30 day Reassessments:: Not Met Final Reassessments:: Not Met Safety Referral to Physical Therapy: No Referral to [facility] Case Management: No Fall Risk Assessed:: Yes Assistive Devices:: None Exercise - Initial Assessment Visit Date of Eval: 03/07/25 (initial eval ) Mets: Pre-: >3 METS for 30 minutes by discharge, >5 METS for 30 minutes by discharge, >7 METS for 30 minutes by discharge and Unable to meet goal due to: (see comment below) Stress Test Resting HR (bpm):: 91 Blood Pressure: 102/70 EKG: NSR, anterolateral T wave abnormality Physician Prescribed Exercise Modalities: Treadmill, Schwinn Airdyne AD-7, SciFit Stepper, ReleadFit Pro-II Ergometer and SciFit Lateral [place] Frequency: 3x/week for 12 weeks [36 sessions] Intensity: 60-80% of age predicted maximum heart rate reserve Duration: 30 - 45 minutes Current METSs:: 3 Target Heart Rate:: 95-119 Resting Blood Pressure: 102/70 EKG Type: NSR, anterolateral Twave abnormality Outcomes & Goals Goals:: Verbalizes understanding of THR, RPE & goal METS by session 6, Documents in home exercise log/reports 30 min aerobic 5 day/wk by DC, Demonstrates accurate pulse taking by DC and Other additional outcome/goals: see below Intervention & Plan Exercise Program Goals: Instruct on personal THR & RPE, Instruct on MET level & personal MET goal, Show patient to take own pulse /validate performance until accurate, Instruct on home exercise and Other additional plan/int Physical Activity Home Exercise Physical Activity - Home Exercise: Safe Exercise, Warm-up, Self-monitoring, Cool-Down, Home Exercise > 30 min Daily and Sitting Time <3 hours/daily Outcomes & Goals Outcomes/Goals: Demonstrates correct Warm-up/exercise Cool-Down (S3) if = 2.5 METs, Verbalizes symptoms of exercise intolerance by Session 3 (S3), Demonstrate safe equipment use (S3) & follows exercise prescrition (6) and Other: See below Intervention & Plan Plan/Intervention: Instruct warm-up & cool-down if exercising at > 2 METs, Instruct on symptoms of exercise intolerance & actions to take, Instruct & monitor on saf, Assess intial functional capacity & safety risk and Other See below Nutrition - Initial Assessment Program Goals Nutrition Program Goals Patient has diagnosis of Hyperlipidemia (ICD E78)?: No Visit Date of Eval: 03/07/25 (initial eval ) Cholesterol/Lipids (Other Core Measures) Determine presence & major risk factors that modify LDL goal: Hypertension or hypertensive medication, Low HDL cholesterol <40 mg/dL*, Family history of premature CHD in Male < 55 years: female <65 yearsFa and Age men > 45 years; women >/= 55 years Outcomes/Goals: Pt IDs own risk factors & lifestyle modifications by Session 10, Verbalizes symptoms of angina & response by session 3., Pt independently manages and Other Additional Outcomes/Goals: Intervention/Plan: Advocate for lipid panel cholesterol medication if applicable, Instruct on personal lipid levels & lipid goals/NCEP guidelines, Instruct on cholesterol and Other additional plan/int Diabetes (Other Core Measures) Diabetes Type: Not Applicable Weight Mgt (Other Care) Height: 5 ft 6 in Weight:: 145 lb BMI: 23.3 Diagnosis Overweight/Obesity BMI> 30% ICD-10 E66: No Diagnosis High BMI/Morbid Obesity BMI> 35% ICD-10 Z68: No Outcomes/Goals: Pt sets, maintains & shows weight loss goal & trend during rehab and Other additional outcomes/goals Intervention/Plan: Instruct on ideal BMI & set weight loss goal w/patient, Assist pt to ID & incorporate diet changes for weight loss by S9, Refer to Structured Weight Loss program as appropriate, Encourage goal of using 250-300dcal per session for weight loss and Other additional plan/interventions Healthy Eating Habits Will attend diet classes:: Yes Outcomes/Goals:: Consume diet rich in vegs,fruits,whole grain/high fiber,fish,lean meat, Limit sat/trans fats,cholesterol & added salts & sugars and Other additional outcome/goals: Intervention/Plan:: Assess current eating habits and Other Additional plan/interventions Education Gave educational materials for:: Signs & symptoms of hypoglycemia, Signs & symptoms of hyperglycemia, Relate diabetes to coronary artery disease and Healthy eating Core - Initial Assessment Visit Date of Eval: 03/07/25 (initial eval ) Medication Compliance Preventative Medication(s):: Aspirin, Statin/lipid and Beta nia H/O mental health issues: depression, anxiety, or addiction?: No Doesn?t believe in the benefits of treatment?: No Believes medications are unnecessary or harmful?: No Has a concern about medication side effects?: No Expresses concern over the cost of medications?: No Outcomes/Goals: Verbalizes medications,desired effect & common side effects @ DC, Pt self-reports following medication regimen, Keeps card in wallet w/medications listed by DC and Other additional outcome/goals: Interventions/plans: Instruct on medication effects & side effects, Review medication list w/patient every two weeks, Instruct importance of taking meds as ordered & assist problem solving and Other additional Tobacco Use Tobacco Use: Non-smoker Hypertension Hypertension Diagnosis:: Hypertension ICD-10 I10 Resting Blood Pressure:: 102/70 [employer] Hypertension Guidelines Outcomes/Goals: Able to verbalize/achieve optimal blood pressure <130/80, Incorporates diet changes & exercise for blood pressure control by DC and Other additional outcomes/goals Interventions/plan: Instruct on optimal blood pressure, hypertension & medications, Instruct on effects of sodium, alcohol, stress, exercise &hypertension and Other additional plan/interventions Tobacco Cessation Referral Smoking Cessation Referral:: No Individual Education/Counseling:: No Education Schedule Given:: Yes Psychosocial - Initial Assess VIsit Date of Eval: 03/07/25 (initial eval ) History of previous Mental disease:: No Target Goals Target Goals Psychosocial Test Tool Used:: PHQ-9 Questionnaire phq-9 Severity See PHQ-9 Score: 7 Referral to Behavioral Health PS - Interventions: Yes: Attend Stress Management Classes Outcomes/Goals: See list Psychosocial Outcomes/Goals:: ID's personal stressors & 2 strategies to manage stress by discharge and Other Additional outcome/goals: Intervention/Plan: See List Interventions/Plan:: Assess stressors,coping strategies & signs of derpression on admission, Instruct/assist pt to develop coping & personal stress Mgt strategies, Refer to Behavioral Health if appropriate, Refer to Physician if appropriate, Instruct patient to recognize signs & symptoms of depression, Instruct patient to recog and Other additional plan/intervention Patient Health Questionnaire PHQ-9 Screening Initial Assessment: 1. Little interest or pleasure in doing things: Not at all 2. Feeling down, depressed, or hopeless: Not at all 3. Trouble falling or staying asleep, or sleeping too much: Nearly every day 4. Feeling tired or having little energy: Several days 5. Poor appetite or overeating: Not at all 6. Feeling bad about yourself -- or that you are a failure or have let yourself or your family down: Not at all 7. Trouble concentrating on things, such as reading the newspaper or watching television: Not at all 8. Moving or speaking so slowly that other people could have noticed. Or the opposite - being so fidgety or restless that you have been moving around a lot more than usual: Nearly every day 9. Thoughts that you would be better off , or of hurting yourself in some way: Not at all How difficult have these problems made it for you to do your work, take care of things at home, or get along with other people?: Somewhat difficult Total Score: 7 FIOR-Q SV Test Statements CAD is a disease of the arteries in the heart: False Examples of risk factors for heart disease: True Angina is chest pain or discomfort: I Don't Know The benefits of resistance training include: True Eating more meat and dairy products: False Anti-platelet medications such as aspirin are important: True The only effective way to manage stress: False An exercise warm-up slowly increases heart rate: True Prepared, processed foods usually have high sodium: True Depression is common after a heart attack: True The statin medications lower cholesterol: True To control blood pressure, lower the amount of sodium: True If someone gets chest discomfort during walking: False Transfats are partially hydrogenated vegetable oils: True Sleep apnea that is not treated increases the risk: False To control cholesterol, one should become a vegetarian: False Someone knows if he/she is exercising at the right level: I Don't Know Diabetes cannot be prevented with exercise & health eating: False Stress is a large risk for heart attack: True A diet that can help lower blood pressure is rich in: True Total Score Total Correct Responses: 18 Self-Efficacy 6-Item Scale Initial Assessment: We would like to know how confident you are in doing certain activities. Please select your confidence level for: Fatigue Select Number: 5 Physical Discomfort or Pain Select Number: 7 Emotional Distress Select Number: 8 Other Symptoms or Health Problems Select Number: 8 Different Tasks and Activities Select Number: 10 Medication Select Number: 8 Total Score:: 7 Nutrition Survey Nutrition Survey Instructions Scoring Instructions Nutrition Survey Initial: Have you lost >10 lbs over the past 2 months without trying?: Yes Are you following a special diet at home for diabetes, low fat, or low salt?: Yes Are you interested in meeting with a dietitian for help understanding your diet?: No Do you eat less than 3 meals a day?: No Do you eat fatty meats (harp, sausage, ribs, etc), fried foods, desserts, large amounts of salad dressings, margarine, butter, or cheese most days?: No Do you have food allergies? [Enter types in comment field]: Yes Do you eat in restaurants more than 3 times a week?: No Do you season food with salt, seasoning salt, or garlic salt?: Yes Do you used canned, boxed, frozen meals, or soups, seasoning packets?: No Total Score:: 4 Exercise - 30-day Assessment Physician Prescribed Exercise Modalities: Treadmill, Schwinn Airgeorgene AD-7, SciFit Stepper, SciFit Pro-II Ergometer and SciFit Lateral [place] Exercise - 60-day Assessment Physician Prescribed Exercise Modalities: Treadmill, Schwinn Airdyne AD-7, SciFit Stepper, SciFit Pro-II Ergometer and SciFit Lateral [place] Supervisor Exercise - 90-day Assessment Physician Prescribed Exercise Modalities: Treadmill, Schwinn Airdyne AD-7, SciFit Stepper, SciFit Pro-II Ergometer and SciFit Lateral [place] Exercise - Final/Discharge Physician Prescribed Exercise Modalities: Treadmill, Schwinn Airdyne AD-7, SciFit Stepper, SciFit Pro-II Ergometer and SciFit Lateral [place] Supervisor Frequency: 3x/week for 12 weeks [36 sessions] Intensity: 60-80% of age predicted maximum heart rate reserve Current METSs:: 3 Target Heart Rate:: 95-119 Nutrition - 30-Day Assessment Weight Mgt (Other Care) Height: 5 ft 6 in Weight:: 145 lb BMI: 23.3 Nutrition - 60-Day Assessment Weight Mgt (Other Care) Height: 5 ft 6 in Weight:: 145 lb BMI: 23.3 Core - Final Assessment Hypertension Resting Blood Pressure:: 102/70 [employer] Hypertension Guidelines Core - 60-Day Assessment Hypertension Resting Blood Pressure:: 102/70 [employer] Hypertension Guidelines Psychosocial - 30-Day Assess Target Goals Target Goals Referral to Behavioral Health PS - Interventions: Yes: Attend Stress Management Classes Psychosocial - 60-Day Assess Target Goals Target Goals Referral to Behavioral Health PS - Interventions: Yes: Attend Stress Management Classes Psychosocial - 90-Day Assess Target Goals Target Goals Referral to Behavioral Health PS - Interventions: Yes: Attend Stress Management Classes Psychosocial - Final Assessmen Target Goals Target Goals Psychosocial Test phq-9 Severity See PHQ-9 Score: 7 Referral to Behavioral Health PS - Interventions: Yes: Attend Stress Management Classes Nutrition - 90-Day Assessment Weight Mgt (Other Care) Height: 5 ft 6 in Weight:: 145 lb BMI: 23.3 Nutrition - Final Assessment Program Goals Patient has diagnosis of Hyperlipidemia (ICD E78)?: No Weight Mgt (Other Care) Height: 5 ft 6 in Weight:: 145 lb BMI: 23.3
[2025-03-07 13:18] VITALS: BP 102/70
[2025-03-07 14:07] VITALS: BP 102/70; BMI 23.3
== END | disposition home or self-care (01) ==
PROVIDERS: PCP Family Medicine; Referring Provider Internal Medicine Interventional Cardiology; Visit Provider Internal Medicine Interventional Cardiology
DX: Z95.1 Presence of aortocoronary bypass graft (principal)

== ENCOUNTER 2025-03-18 15:15 | Outpatient (RCR) | payer BC, SELFPAY ==
[2025-03-07 14:07] VITALS: BMI 23.3
== END 2025-03-18 23:59 ==
LOC: CR 15:15
PROVIDERS: PCP Family Medicine; Referring Provider Internal Medicine Interventional Cardiology; Visit Provider Internal Medicine Interventional Cardiology
DX: Z95.1 Presence of aortocoronary bypass graft (principal)
CPT/HCPCS: 93798

== ENCOUNTER 2025-04-17 15:15 | Outpatient (RCR) | payer BC, SELFPAY ==
[2025-03-07 14:07] VITALS: BMI 23.3
--- NOTE | 2025-04-03 08:44 | PCM.CR.ITP ---
Exercise - Initial Assessment Visit Session #:: 9 Physician Prescribed Exercise Modalities: Treadmill, Schwinn Airdyne AD-7 and SciFit Lateral [employer] Developer Nutrition - Initial Assessment Weight Mgt (Other Care) Height: 5 ft 6 in Weight:: 145 lb BMI: 23.3 Psychosocial - Initial Assess Target Goals Target Goals Referral to Behavioral Health PS - Interventions: Yes: Attend Stress Management Classes Patient Health Questionnaire PHQ-9 Screening 30-Day Re-eval Assessment: 1. Little interest or pleasure in doing things: Not at all 2. Feeling down, depressed, or hopeless: Not at all 3. Trouble falling or staying asleep, or sleeping too much: Nearly every day 4. Feeling tired or having little energy: Several days 5. Poor appetite or overeating: Not at all 6. Feeling bad about yourself -- or that you are a failure or have let yourself or your family down: Not at all 7. Trouble concentrating on things, such as reading the newspaper or watching television: Not at all 8. Moving or speaking so slowly that other people could have noticed. Or the opposite - being so fidgety or restless that you have been moving around a lot more than usual: Nearly every day 9. Thoughts that you would be better off , or of hurting yourself in some way: Not at all How difficult have these problems made it for you to do your work, take care of things at home, or get along with other people?: Somewhat difficult Total Score: 7 Self-Efficacy 6-Item Scale 30-Day Re-eval Assessment: We would like to know how confident you are in doing certain activities. Please select your confidence level for: Fatigue Select Number: 5 Physical Discomfort or Pain Select Number: 7 Emotional Distress Select Number: 8 Other Symptoms or Health Problems Select Number: 8 Different Tasks and Activities Select Number: 10 Medication Select Number: 8 Total Score:: 7 Nutrition Survey Nutrition Survey Instructions Scoring Instructions Exercise - 30-day Assessment Visit Date of Eval: 04/03/25 Session #:: 9 Physician Prescribed Exercise Modalities: Treadmill, Schwinn Airdyne AD-7 and SciFit Lateral [place] Frequency: 3x/week for 12 weeks [36 sessions] Intensity: 60-80% of age predicted maximum heart rate reserve Duration: 30 - 45 minutes Current METSs:: 5 Target Heart Rate:: 95-119 Current RPE:: 11-12 Maximum Excercise HR:: 114 Resting Blood Pressure: 120/70 Maximum Exercise Blood Pressure: 140/72 EKG Type: NSR to ST with rare PVC Outcomes & Goals Goals:: Verbalizes understanding of THR, RPE & goal METS by session 6, Documents in home exercise log/reports 30 min aerobic 5 day/wk by DC, Demonstrates accurate pulse taking by DC and Other additional outcome/goals: see below Intervention & Plan Exercise Program Goals: Instruct on personal THR & RPE, Instruct on MET level & personal MET goal, Show patient to take own pulse /validate performance until accurate, Instruct on home exercise and Other additional plan/int Physical Activity Home Exercise Physical Activity - Home Exercise: Safe Exercise, Warm-up, Self-monitoring, Cool-Down, Home Exercise > 30 min Daily and Sitting Time <3 hours/daily Outcomes & Goals Outcomes/Goals: Demonstrates correct Warm-up/exercise Cool-Down (S3) if = 2.5 METs, Verbalizes symptoms of exercise intolerance by Session 3 (S3), Demonstrate safe equipment use (S3) & follows exercise prescrition (6) and Other: See below Intervention & Plan Plan/Intervention: Instruct warm-up & cool-down if exercising at > 2 METs, Instruct on symptoms of exercise intolerance & actions to take, Instruct & monitor on saf, Assess intial functional capacity & safety risk and Other See below 30-day Reassessments 30 day Reassessments:: Progressing Reassessment Notes & Comments:: RPE explained to pt. Pt demonstrates understanding in his daily sessions. Exercise - 60-day Assessment Physician Prescribed Exercise Modalities: Treadmill, Schwinn Airdyne AD-7 and SciFit Lateral [place] Exercise - 90-day Assessment Physician Prescribed Exercise Modalities: Treadmill, Schwinn Airdyne AD-7 and SciFit Lateral [place] Exercise - Final/Discharge Physician Prescribed Exercise Modalities: Treadmill, Schwinn Airdyne AD-7 and SciFit Lateral [place] Nutrition - 30-Day Assessment Program Goals Nutrition Program Goals Patient has diagnosis of Hyperlipidemia (ICD E78)?: Yes Visit Date of Eval: 04/03/25 Session #:: 9 Cholesterol/Lipids (Other Core Measures) Determine presence & major risk factors that modify LDL goal: Hypertension or hypertensive medication, Low HDL cholesterol <40 mg/dL*, Family history of premature CHD in Male < 55 years: female <65 yearsFa and Age men > 45 years; women >/= 55 years Outcomes/Goals: Pt IDs own risk factors & lifestyle modifications by Session 10, Verbalizes symptoms of angina & response by session 3., Pt independently manages and Other Additional Outcomes/Goals: Intervention/Plan: Advocate for lipid panel cholesterol medication if applicable, Instruct on personal lipid levels & lipid goals/NCEP guidelines, Instruct on cholesterol and Other additional plan/int Diabetes (Other Core Measures) Diabetes Type: Not Applicable Weight Mgt (Other Care) Height: 5 ft 6 in Weight:: 145 lb BMI: 23.3 Diagnosis Overweight/Obesity BMI> 30% ICD-10 E66: No Diagnosis High BMI/Morbid Obesity BMI> 35% ICD-10 Z68: No Outcomes/Goals: Pt sets, maintains & shows weight loss goal & trend during rehab and Other additional outcomes/goals Intervention/Plan: Instruct on ideal BMI & set weight loss goal w/patient, Assist pt to ID & incorporate diet changes for weight loss by S9, Refer to Structured Weight Loss program as appropriate, Encourage goal of using 250-300dcal per session for weight loss and Other additional plan/interventions 30 day Reassessments:: Met Reassessment Notes & Comments:: Pt is at am healthy weight Healthy Eating Habits Will attend diet classes:: Yes Outcomes/Goals:: Consume diet rich in vegs,fruits,whole grain/high fiber,fish,lean meat, Limit sat/trans fats,cholesterol & added salts & sugars and Other additional outcome/goals: Intervention/Plan:: Assess current eating habits and Other Additional plan/interventions 30-day Reassessments:: Progressing Reassessment Notes & Comments:: Pt is scheduled to attend nutrition class. Heart healthy low sodium diet encouraged. Education Gave educational materials for:: Signs & symptoms of hypoglycemia, Signs & symptoms of hyperglycemia, Relate diabetes to coronary artery disease and Healthy eating Nutrition - 60-Day Assessment Weight Mgt (Other Care) Height: 5 ft 6 in Weight:: 145 lb BMI: 23.3 Core - 30-Day Assessment Visit Date of Eval: 04/03/25 Session #:: 9 Medication Compliance Preventative Medication(s):: Aspirin, Statin/lipid and Beta nia H/O mental health issues: depression, anxiety, or addiction?: No Doesn?t believe in the benefits of treatment?: No Believes medications are unnecessary or harmful?: No Has a concern about medication side effects?: No Expresses concern over the cost of medications?: No Outcomes/Goals: Verbalizes medications,desired effect & common side effects @ DC, Pt self-reports following medication regimen, Keeps card in wallet w/medications listed by DC and Other additional outcome/goals: Interventions/plans: Instruct on medication effects & side effects, Review medication list w/patient every two weeks, Instruct importance of taking meds as ordered & assist problem solving and Other additional 30-day Reassessments:: Met Reassessment Notes & Comments:: Pt taking meds as prescribed Tobacco Use Tobacco Use: Non-smoker Hypertension Resting Blood Pressure:: 120/70 [place] [employer] Hypertension Guidelines Peak Exercise Blood Pressure:: 140/72 Outcomes/Goals: Able to verbalize/achieve optimal blood pressure <130/80, Incorporates diet changes & exercise for blood pressure control by DC and Other additional outcomes/goals Interventions/plan: Instruct on optimal blood pressure, hypertension & medications, Instruct on effects of sodium, alcohol, stress, exercise &hypertension and Other additional plan/interventions 30 day Reassessments:: Met Reassessment Notes & Comments:: Pt's BP's are within AHA normal limits. Will continue to monitor and report to pt's physician if necessary. Tobacco Cessation Referral Smoking Cessation Referral:: No Individual Education/Counseling:: No Education Schedule Given:: Yes Psychosocial - 30-Day Assess VIsit Date of Eval: 04/03/25 Session #:: 9 History of previous Mental disease:: No Target Goals Target Goals Psychosocial Test Tool Used:: PHQ-9 Questionnaire phq-9 Severity See PHQ-9 Score: 7 Referral to Behavioral Health PS - Interventions: Yes: Attend Stress Management Classes Outcomes/Goals: See list Psychosocial Outcomes/Goals:: ID's personal stressors & 2 strategies to manage stress by discharge and Other Additional outcome/goals: Intervention/Plan: See List Interventions/Plan:: Assess stressors,coping strategies & signs of derpression on admission, Instruct/assist pt to develop coping & personal stress Mgt strategies, Refer to Behavioral Health if appropriate, Refer to Physician if appropriate, Instruct patient to recognize signs & symptoms of depression, Instruct patient to recog and Other additional plan/intervention 30-day Reassessments: 30 day Reassessments:: Progressing Reassessment Notes & Comments:: Pt denies any psychosocial issues at this time. Will continue to monitor. Pt will attend stress management class. Psychosocial - 60-Day Assess Target Goals Target Goals Referral to Behavioral Health PS - Interventions: Yes: Attend Stress Management Classes Outcomes/Goals: See list Psychosocial Outcomes/Goals:: ID's personal stressors & 2 strategies to manage stress by discharge and Other Additional outcome/goals: Psychosocial - 90-Day Assess Target Goals Target Goals Referral to Behavioral Health PS - Interventions: Yes: Attend Stress Management Classes Psychosocial - Final Assessmen Target Goals Target Goals Referral to Behavioral Health PS - Interventions: Yes: Attend Stress Management Classes Nutrition - 90-Day Assessment Weight Mgt (Other Care) Height: 5 ft 6 in Weight:: 145 lb BMI: 23.3 Nutrition - Final Assessment Weight Mgt (Other Care) Height: 5 ft 6 in Weight:: 145 lb BMI: 23.3
[2025-04-03 08:56] VITALS: BP 120/70; BMI 23.3
== END 2025-04-18 23:59 ==
LOC: CR 15:15
PROVIDERS: PCP Family Medicine; Referring Provider Internal Medicine Interventional Cardiology; Visit Provider Internal Medicine Interventional Cardiology
DX: Z95.1 Presence of aortocoronary bypass graft (principal)
CPT/HCPCS: 93798

== ENCOUNTER 2025-05-17 15:15 | Outpatient (RCR) | payer BC, SELFPAY ==
[2025-04-03 08:56] VITALS: BMI 23.3
--- NOTE | 2025-05-02 07:16 | CR.ITP_ITS ---
Exercise - Initial Assessment Physician Prescribed Exercise Modalities: Treadmill, Schwinn Airdyne AD-7 and SciFit Lateral Forensic Investigator Nutrition - Initial Assessment Weight Mgt (Other Care) Height: 5 ft 6 in Weight:: 146 lb BMI: 23.6 Core - Initial Assessment Hypertension Resting Blood Pressure:: 98/60 [place] [employer] Hypertension Guidelines Psychosocial - Initial Assess Target Goals Target Goals Referral to Behavioral Health PS - Interventions: Yes: Attend Stress Management Classes Patient Health Questionnaire PHQ-9 Screening 60-Day Re-eval Assessment: 1. Little interest or pleasure in doing things: Not at all 2. Feeling down, depressed, or hopeless: Not at all 3. Trouble falling or staying asleep, or sleeping too much: Nearly every day 4. Feeling tired or having little energy: Several days 5. Poor appetite or overeating: Not at all 6. Feeling bad about yourself -- or that you are a failure or have let yourself or your family down: Not at all 7. Trouble concentrating on things, such as reading the newspaper or watching television: Not at all 8. Moving or speaking so slowly that other people could have noticed. Or the opposite - being so fidgety or restless that you have been moving around a lot more than usual: Nearly every day 9. Thoughts that you would be better off , or of hurting yourself in some way: Not at all How difficult have these problems made it for you to do your work, take care of things at home, or get along with other people?: Somewhat difficult Total Score: 7 Self-Efficacy 6-Item Scale 60-Day Re-eval Assessment: We would like to know how confident you are in doing certain activities. Please select your confidence level for: Fatigue Select Number: 5 Physical Discomfort or Pain Select Number: 7 Emotional Distress Select Number: 8 Other Symptoms or Health Problems Select Number: 8 Different Tasks and Activities Select Number: 10 Medication Select Number: 8 Total Score:: 7 Nutrition Survey Nutrition Survey Instructions Scoring Instructions Exercise - 30-day Assessment Physician Prescribed Exercise Modalities: Treadmill, Schwinn Airdyne AD-7 and SciFit Lateral Forensic Investigator Exercise - 60-day Assessment Visit Date of Eval: 05/02/25 Session #:: 22 Physician Prescribed Exercise Modalities: Treadmill, Schwinn Airdyne AD-7 and SciFit Lateral [place] Frequency: 3x/week for 12 weeks [36 sessions] Intensity: 60-80% of age predicted maximum heart rate reserve Duration: 30 - 45 minutes Current METSs:: 5.7 Target Heart Rate:: 95-126 Current RPE:: 12 Maximum Excercise HR:: 118 Resting Blood Pressure: 102/54 Maximum Exercise Blood Pressure: 118/60 EKG Type: NSR to ST w/ an isolated PAC. Twave inversion noted. Outcomes & Goals Goals:: Verbalizes understanding of THR, RPE & goal METS by session 6, Documents in home exercise log/reports 30 min aerobic 5 day/wk by DC, Demonstrates accurate pulse taking by DC and Other additional outcome/goals: see below Intervention & Plan Exercise Program Goals: Instruct on personal THR & RPE, Instruct on MET level & personal MET goal, Show patient to take own pulse /validate performance until accurate, Instruct on home exercise and Other additional plan/int Physical Activity Home Exercise Physical Activity - Home Exercise: Safe Exercise, Warm-up, Self-monitoring, Cool-Down, Home Exercise > 30 min Daily and Sitting Time <3 hours/daily Outcomes & Goals Outcomes/Goals: Demonstrates correct Warm-up/exercise Cool-Down (S3) if = 2.5 METs, Verbalizes symptoms of exercise intolerance by Session 3 (S3), Demonstrate safe equipment use (S3) & follows exercise prescrition (6) and Other: See below Intervention & Plan Plan/Intervention: Instruct warm-up & cool-down if exercising at > 2 METs, Instruct on symptoms of exercise intolerance & actions to take, Instruct & monitor on saf, Assess intial functional capacity & safety risk and Other See below 30-day Reassessments 30 day Reassessments:: Progressing Reassessment Notes & Comments:: Proper warm up and cool down explained to pt. Pt demonstrates understanding in his daily sessions. Exercise - 90-day Assessment Physician Prescribed Exercise Modalities: Treadmill, Schwinn Airdyne AD-7 and SciFit Lateral [place] Exercise - Final/Discharge Physician Prescribed Exercise Modalities: Treadmill, Schwinn Airdyne AD-7 and SciFit Lateral Forensic Investigator Nutrition - 30-Day Assessment Weight Mgt (Other Care) Height: 5 ft 6 in Weight:: 146 lb BMI: 23.6 Nutrition - 60-Day Assessment Program Goals Nutrition Program Goals Patient has diagnosis of Hyperlipidemia (ICD E78)?: Yes Visit Date of Eval: 05/02/25 Session #:: 22 Cholesterol/Lipids (Other Core Measures) Determine presence & major risk factors that modify LDL goal: Hypertension or hypertensive medication, Low HDL cholesterol <40 mg/dL*, Family history of premature CHD in Male < 55 years: female <65 yearsFa and Age men > 45 years; women >/= 55 years Outcomes/Goals: Pt IDs own risk factors & lifestyle modifications by Session 10, Verbalizes symptoms of angina & response by session 3., Pt independently manages and Other Additional Outcomes/Goals: Intervention/Plan: Advocate for lipid panel cholesterol medication if applicable, Instruct on personal lipid levels & lipid goals/NCEP guidelines, Instruct on cholesterol and Other additional plan/int Diabetes (Other Core Measures) Diabetes Type: Not Applicable Weight Mgt (Other Care) Height: 5 ft 6 in Weight:: 146 lb BMI: 23.6 Diagnosis Overweight/Obesity BMI> 30% ICD-10 E66: No Diagnosis High BMI/Morbid Obesity BMI> 35% ICD-10 Z68: No Outcomes/Goals: Pt sets, maintains & shows weight loss goal & trend during rehab and Other additional outcomes/goals Intervention/Plan: Instruct on ideal BMI & set weight loss goal w/patient, Assist pt to ID & incorporate diet changes for weight loss by S9, Refer to Structured Weight Loss program as appropriate, Encourage goal of using 250- 300dcal per session for weight loss and Other additional plan/interventions 30 day Reassessments:: Met Reassessment Notes & Comments:: Pt is at a healthy weight. Pt is attending nutrition class this week with our wind farm engineer. Healthy Eating Habits Will attend diet classes:: Yes Outcomes/Goals:: Consume diet rich in vegs,fruits,whole grain/high fiber,fish,lean meat, Limit sat/trans fats,cholesterol & added salts & sugars a nd Other additional outcome/goals: Intervention/Plan:: Assess current eating habits and Other Additional plan/interventions 30-day Reassessments:: Progressing Reassessment Notes & Comments:: Pt is at a healthy weight. Pt is attending nutrition class this week with our wind farm engineer. Low sodium heart healthy diet encouraged. Education Gave educational materials for:: Signs & symptoms of hypoglycemia, Signs & symptoms of hyperglycemia, Relate diabetes to coronary artery disease and Healthy eating Core - Final Assessment Hypertension Resting Blood Pressure:: 98/60 [place] [employer] Hypertension Guidelines Core - 60-Day Assessment Visit Date of Eval: 05/02/25 Session #:: 22 Medication Compliance Preventative Medication(s):: Aspirin, Statin/lipid and Beta nia H/O mental health issues: depression, anxiety, or addiction?: No Doesn?t believe in the benefits of treatment?: No Believes medications are unnecessary or harmful?: No Has a concern about medication side effects?: No Expresses concern over the cost of medications?: No Outcomes/Goals: Verbalizes medications,desired effect & common side effects @ DC, Pt self-reports following medication regimen, Keeps card in wallet w/medications listed by DC and Other additional outcome/goals: Interventions/plans: Instruct on medication effects & side effects, Review medication list w/patient every two weeks, Instruct importance of taking meds as ordered & assist problem solving and Other additional 30-day Reassessments:: Met Reassessment Notes & Comments:: Pt is taking meds as prescribed and will attend cardiac meds class. Tobacco Use Tobacco Use: Non-smoker Hypertension Resting Blood Pressure:: 102/54 Resting Blood Pressure:: 98/60 [place] [employer] Hypertension Guidelines Peak Exercise Blood Pressure:: 118/60 Outcomes/Goals: Able to verbalize/achieve optimal blood pressure <130/80, Incorporates diet changes & exercise for blood pressure control by DC and Other additional outcomes/goals Interventions/plan: Instruct on optimal blood pressure, hypertension & medications, Instruct on effects of sodium, alcohol, stress, exercise &hypertension and Other additional plan/interventions 30 day Reassessments:: Met Reassessment Notes & Comments:: Pt's BP's are within AHA normal limits. Will continue to monitor and report to pt's physician if necessary. Tobacco Cessation Referral Smoking Cessation Referral:: No Individual Education/Counseling:: No Education Schedule Given:: Yes Psychosocial - 30-Day Assess Target Goals Target Goals Referral to Behavioral Health PS - Interventions: Yes: Attend Stress Management Classes Outcomes/Goals: See list Psychosocial Outcomes/Goals:: ID's personal stressors & 2 strategies to manage stress by discharge and Other Additional outcome/goals: Psychosocial - 60-Day Assess VIsit Date of Eval: 05/02/25 Session #:: 22 History of previous Mental disease:: No Target Goals Target Goals Psychosocial Test Tool Used:: PHQ-9 Questionnaire phq-9 Severity See PHQ-9 Score: 7 Referral to Behavioral Health PS - Interventions: Yes: Attend Stress Management Classes Outcomes/Goals: See list Psychosocial Outcomes/Goals:: ID's personal stressors & 2 strategies to manage stress by discharge and Other Additional outcome/goals: Intervention/Plan: See List Interventions/Plan:: Assess stressors,coping strategies & signs of derpression on admission, Instruct/assist pt to develop coping & personal stress Mgt strategies, Refer to Behavioral Health if appropriate, Refer to Physician if appropriate, Instruct patient to recognize signs & symptoms of depression, Instruct patient to recog and Other additional plan/intervention 30-day Reassessments: 30 day Reassessments:: Progressing Reassessment Notes & Comments:: Pt denies any psychosocial issues at this time. Will continue to monitor. Encourage exercise and meditation to help with stress. Psychosocial - 90-Day Assess Target Goals Target Goals Referral to Behavioral Health PS - Interventions: Yes: Attend Stress Management Classes Psychosocial - Final Assessmen Target Goals Target Goals Referral to Behavioral Health PS - Interventions: Yes: Attend Stress Management Classes Nutrition - 90-Day Assessment Weight Mgt (Other Care) Height: 5 ft 6 in Weight:: 146 lb BMI: 23.6 Nutrition - Final Assessment Weight Mgt (Other Care) Height: 5 ft 6 in Weight:: 146 lb BMI: 23.6
[2025-05-02 07:30] VITALS: BP 102/54; BP 98/60; BMI 23.6
== END 2025-05-19 23:59 ==
LOC: CR 15:15
PROVIDERS: PCP Family Medicine; Referring Provider Internal Medicine Interventional Cardiology; Visit Provider Internal Medicine Interventional Cardiology
DX: Z95.1 Presence of aortocoronary bypass graft (principal)
CPT/HCPCS: 93798

== ENCOUNTER 2025-06-05 15:15 | Outpatient (RCR) | payer BC, SELFPAY ==
[2025-05-02 07:30] VITALS: BMI 23.6
--- NOTE | 2025-05-31 09:56 | CR.ITP_ITS ---
Exercise - Initial Assessment Physician Prescribed Exercise Modalities: Treadmill, Schwinn Airdyne AD-7 and SciFit Lateral Sap Developer Nutrition - Initial Assessment Weight Mgt (Other Care) Height: 5 ft 6 in Weight:: 147 lb 8 oz BMI: 23.8 Psychosocial - Initial Assess Referral to Behavioral Health PS - Interventions: Yes: Attend Stress Management Classes Patient Health Questionnaire PHQ-9 Screening 90-Day Re-eval Assessment: 1. Little interest or pleasure in doing things: Not at all 2. Feeling down, depressed, or hopeless: Not at all 3. Trouble falling or staying asleep, or sleeping too much: Nearly every day 4. Feeling tired or having little energy: Several days 5. Poor appetite or overeating: Not at all 6. Feeling bad about yourself -- or that you are a failure or have let yourself or your family down: Not at all 7. Trouble concentrating on things, such as reading the newspaper or watching television: Not at all 8. Moving or speaking so slowly that other people could have noticed. Or the opposite - being so fidgety or restless that you have been moving around a lot more than usual: Not at all 9. Thoughts that you would be better off , or of hurting yourself in some way: Not at all How difficult have these problems made it for you to do your work, take care of things at home, or get along with other people?: Somewhat difficult Total Score: 4 Self-Efficacy 6-Item Scale 90-Day Re-eval Assessment: We would like to know how confident you are in doing certain activities. Please select your confidence level for: Fatigue Select Number: 5 Physical Discomfort or Pain Select Number: 7 Emotional Distress Select Number: 8 Other Symptoms or Health Problems Select Number: 8 Different Tasks and Activities Select Number: 10 Medication Select Number: 8 Total Score:: 7 Exercise - 30-day Assessment Physician Prescribed Exercise Modalities: Treadmill, Schwinn Airdyne AD-7 and SciFit Lateral [place] Exercise - 60-day Assessment Physician Prescribed Exercise Modalities: Treadmill, Schwinn Airdyne AD-7 and SciFit Lateral Sap Developer Exercise - 90-day Assessment Visit Date of Eval: 05/31/25 Session #:: 33 Physician Prescribed Exercise Modalities: Treadmill, Schwinn Airdyne AD-7 and SciFit Lateral [place] Frequency: 3x/week for 12 weeks [36 sessions] Intensity: 60-80% of age predicted maximum heart rate reserve Duration: 30 - 45 minutes Current METSs:: 7.1 Target Heart Rate:: 95-126 Current RPE:: 13 Maximum Excercise HR:: 130 Resting Blood Pressure: 104/60 Maximum Exercise Blood Pressure: 130/68 EKG Type: NSR to ST w/Twave inversion rare pvc/pac Outcomes & Goals Goals:: Verbalizes understanding of THR, RPE & goal METS by session 6, Documents in home exercise log/reports 30 min aerobic 5 day/wk by DC, Demonstrates accurate pulse taking by DC and Other additional outcome/goals: see below Intervention & Plan Exercise Program Goals: Instruct on personal THR & RPE, Instruct on MET level & personal MET goal, Show patient to take own pulse /validate performance until accurate, Instruct on home exercise and Other additional plan/int Physical Activity Home Exercise Physical Activity - Home Exercise: Safe Exercise, Warm-up, Self-monitoring, Cool-Down, Home Exercise > 30 min Daily and Sitting Time <3 hours/daily Outcomes & Goals Outcomes/Goals: Demonstrates correct Warm-up/exercise Cool-Down (S3) if = 2.5 METs, Verbalizes symptoms of exercise intolerance by Session 3 (S3), Demonstrate safe equipment use (S3) & follows exercise prescrition (6) and Other: See below Intervention & Plan Plan/Intervention: Instruct warm-up & cool-down if exercising at > 2 METs, Instruct on symptoms of exercise intolerance & actions to take, Instruct & monitor on saf, Assess intial functional capacity & safety risk and Other See below 30-day Reassessments 30 day Reassessments:: Met Reassessment Notes & Comments:: Pt has 3 sessions remaining. Pt has done very well. Upon graduation pt will be given his exercise prescription as well as community resources to continue his exercise. Exercise - Final/Discharge Physician Prescribed Exercise Modalities: Treadmill, Schwinn Airdyne AD-7 and SciFit Lateral Sap Developer Nutrition - 30-Day Assessment Weight Mgt (Other Care) Height: 5 ft 6 in Weight:: 147 lb 8 oz BMI: 23.8 Nutrition - 60-Day Assessment Weight Mgt (Other Care) Height: 5 ft 6 in Weight:: 147 lb 8 oz BMI: 23.8 Core - 30-Day Assessment Hypertension [place] [employer] Hypertension Guidelines Reassessment Notes & Comments:: Pt's BP's are within AHA normal limits. Core - Final Assessment Hypertension [place] [employer] Hypertension Guidelines Reassessment Notes & Comments:: Pt's BP's are within AHA normal limits. Core - 90 Day Assessment Visit Date of Eval: 05/31/25 Session #:: 33 Medication Compliance Preventative Medication(s):: Aspirin, Statin/lipid and Beta nia H/O mental health issues: depression, anxiety, or addiction?: No Doesn?t believe in the benefits of treatment?: No Believes medications are unnecessary or harmful?: No Has a concern about medication side effects?: No Expresses concern over the cost of medications?: No Outcomes/Goals: Verbalizes medications,desired effect & common side effects @ DC, Pt self-reports following medication regimen, Keeps card in wallet w/medications listed by DC and Other additional outcome/goals: Interventions/plans: Instruct on medication effects & side effects, Review medication list w/patient every two weeks, Instruct importance of taking meds as ordered & assist problem solving and Other additional Tobacco Use Tobacco Use: Non-smoker Hypertension Resting Blood Pressure:: 104/60 [place] [employer] Hypertension Guidelines Peak Exercise Blood Pressure:: 130/68 Outcomes/Goals: Able to verbalize/achieve optimal blood pressure <130/80, Incorporates diet changes & exercise for blood pressure control by DC and Other additional outcomes/goals Interventions/plan: Instruct on optimal blood pressure, hypertension & medications, Instruct on effects of sodium, alcohol, stress, exercise &hypertension and Other additional plan/interventions 30 day Reassessments:: Met Reassessment Notes & Comments:: Pt's BP's are within AHA normal limits. Tobacco Cessation Referral Smoking Cessation Referral:: No Individual Education/Counseling:: No Education Schedule Given:: Yes Psychosocial - 30-Day Assess Referral to Behavioral Health PS - Interventions: Yes: Attend Stress Management Classes Psychosocial - 60-Day Assess Referral to Behavioral Health PS - Interventions: Yes: Attend Stress Management Classes Psychosocial - 90-Day Assess VIsit Date of Eval: 05/31/25 Session #:: 33 History of previous Mental disease:: No Psychosocial Test Tool Used:: PHQ-9 Questionnaire phq-9 Severity See PHQ-9 Score: 7 Referral to Behavioral Health PS - Interventions: Yes: Attend Stress Management Classes Outcomes/Goals: See list Psychosocial Outcomes/Goals:: ID's personal stressors & 2 strategies to manage stress by discharge and Other Additional outcome/goals: Intervention/Plan: See List Interventions/Plan:: Assess stressors,coping strategies & signs of derpression on admission, Instruct/assist pt to develop coping & personal stress Mgt strategies, Refer to Behavioral Health if appropriate, Refer to Physician if appropriate, Instruct patient to recognize signs & symptoms of depression, Instruct patient to recog and Other additional plan/intervention 30-day Reassessments: 30 day Reassessments:: Met Reassessment Notes & Comments:: Pt denies any psychosocial issues at this time. Pt has attended stress management class. Psychosocial - Final Assessmen Referral to Behavioral Health PS - Interventions: Yes: Attend Stress Management Classes Nutrition - 90-Day Assessment Program Goals Nutrition Program Goals Patient has diagnosis of Hyperlipidemia (ICD E78)?: Yes Visit Date of Eval: 05/31/25 Session #:: 33 Cholesterol/Lipids (Other Core Measures) Determine presence & major risk factors that modify LDL goal: Hypertension or hypertensive medication, Low HDL cholesterol <40 mg/dL*, Family history of premature CHD in Male < 55 years: female <65 yearsFa and Age men > 45 years; women >/= 55 years Outcomes/Goals: Pt IDs own risk factors & lifestyle modifications by Session 10, Verbalizes symptoms of angina & response by session 3., Pt independently manages and Other Additional Outcomes/Goals: Intervention/Plan: Advocate for lipid panel cholesterol medication if applicable, Instruct on personal lipid levels & lipid goals/NCEP guidelines, Instruct on cholesterol and Other additional plan/int Diabetes (Other Core Measures) Diabetes Type: Not Applicable Weight Mgt (Other Care) Height: 5 ft 6 in Weight:: 147 lb 8 oz BMI: 23.8 Diagnosis Overweight/Obesity BMI> 30% ICD-10 E66: No Diagnosis High BMI/Morbid Obesity BMI> 35% ICD-10 Z68: No Outcomes/Goals: Pt sets, maintains & shows weight loss goal & trend during rehab and Other additional outcomes/goals Intervention/Plan: Instruct on ideal BMI & set weight loss goal w/patient, Assist pt to ID & incorporate diet changes for weight loss by S9, Refer to Structured Weight Loss program as appropriate, Encourage goal of using 250- 300dcal per session for weight loss and Other additional plan/interventions 30 day Reassessments:: Met Reassessment Notes & Comments:: Pt is at a healthy weight. Pt has attended nutrition classes with our home health care coordinator. Low sodium heart healthy diet explained and encouraged. Healthy Eating Habits Will attend diet classes:: Yes Outcomes/Goals:: Consume diet rich in vegs,fruits,whole grain/high fiber,fish,lean meat, Limit sat/trans fats,cholesterol & added salts & sugars and Other additional outcome/goals: Intervention/Plan:: Assess current eating habits and Other Additional plan/interventions 30-day Reassessments:: Met Reassessment Notes & Comments:: Pt is at a healthy weight. Pt has attended nutrition classes with our home health care coordinator. Low sodium heart healthy diet explained and encouraged. Nutrition - Final Assessment Weight Mgt (Other Care) Height: 5 ft 6 in Weight:: 147 lb 8 oz BMI: 23.8
[2025-05-31 10:09] VITALS: BP 104/60; BMI 23.8
--- NOTE | 2025-06-26 08:56 | PCM.CR.ITP ---
Exercise - Initial Assessment Physician Prescribed Exercise Modalities: Treadmill, Schwinn Airdyne AD-7 and SciFit Lateral Tab Machine Operator Nutrition - Initial Assessment Program Goals Nutrition Program Goals Patient has diagnosis of Hyperlipidemia (ICD E78)?: Yes Weight Mgt (Other Care) Height: 5 ft 6 in Weight:: 148 lb BMI: 23.8 Core - Initial Assessment Hypertension Resting Blood Pressure:: 94/64 [place] [employer] Hypertension Guidelines Psychosocial - Initial Assess Psychosocial Test phq-9 Severity See PHQ-9 Score: 7 Referral to Behavioral Health PS - Interventions: Yes: Attend Stress Management Classes Exercise - 30-day Assessment Physician Prescribed Exercise Modalities: Treadmill, Schwinn Airdyne AD-7 and SciFit Lateral [place] Exercise - 60-day Assessment Physician Prescribed Exercise Modalities: Treadmill, Schwinn Airdyne AD-7 and SciFit Lateral [place] Exercise - 90-day Assessment Physician Prescribed Exercise Modalities: Treadmill, Schwinn Airdyne AD-7 and SciFit Lateral Tab Machine Operator Exercise - Final/Discharge Visit Date of Eval: 06/26/25 Session #:: 36 Physician Prescribed Exercise Modalities: Treadmill, Schwinn Airdyne AD-7 and SciFit Lateral Tab Machine Operator Frequency: 3x/week for 12 weeks [36 sessions] Intensity: 60-80% of age predicted maximum heart rate reserve Duration: 30 - 45 minutes Current METSs:: 7.1 Target Heart Rate:: 95-126 Current RPE:: 13 Maximum Heart Rate:: 102 Resting Blood Pressure: 94/64 EKG Type: NSR to ST w/Twave inversion w/rare PVC/PAC Outcomes & Goals Goals:: Verbalizes understanding of THR, RPE & goal METS by session 6, Documents in home exercise log/reports 30 min aerobic 5 day/wk by DC, Demonstrates accurate pulse taking by DC and Other additional outcome/goals: see below Intervention & Plan Exercise Program Goals: Instruct on personal THR & RPE, Instruct on MET level & personal MET goal, Show patient to take own pulse /validate performance until accurate, Instruct on home exercise and Other additional plan/int Physical Activity Home Exercise Physical Activity - Home Exercise: Safe Exercise, Warm-up, Self-monitoring, Cool-Down, Home Exercise > 30 min Daily and Sitting Time <3 hours/daily Outcomes & Goals Outcomes/Goals: Demonstrates correct Warm-up/exercise Cool-Down (S3) if = 2.5 METs, Verbalizes symptoms of exercise intolerance by Session 3 (S3), Demonstrate safe equipment use (S3) & follows exercise prescrition (6) and Other: See below Intervention & Plan Plan/Intervention: Instruct warm-up & cool-down if exercising at > 2 METs, Instruct on symptoms of exercise intolerance & actions to take, Instruct & monitor on saf, Assess intial functional capacity & safety risk and Other See below 30-day Reassessments 30 day Reassessments:: Met Reassessment Notes & Comments:: Pt has met his exercise goals. Pt was working at 7.1 METS. Pt was given his exercise prescription as well as community resources to continue his exercise. Nutrition - 30-Day Assessment Weight Mgt (Other Care) Height: 5 ft 6 in Weight:: 148 lb BMI: 23.8 Nutrition - 60-Day Assessment Weight Mgt (Other Care) Height: 5 ft 6 in Weight:: 148 lb BMI: 23.8 Core - 30-Day Assessment Hypertension [place] [employer] Hypertension Guidelines Reassessment Notes & Comments:: Pt's BP's are within AHA normal limits. Core - Final Assessment Visit Date of Eval: 06/26/25 Session #:: 36 Medication Compliance Preventative Medication(s):: Aspirin, Statin/lipid and Beta nia H/O mental health issues: depression, anxiety, or addiction?: No Doesn?t believe in the benefits of treatment?: No Believes medications are unnecessary or harmful?: No Has a concern about medication side effects?: No Expresses concern over the cost of medications?: No Outcomes/Goals: Verbalizes medications,desired effect & common side effects @ DC, Pt self-reports following medication regimen, Keeps card in wallet w/medications listed by DC and Other additional outcome/goals: Interventions/plans: Instruct on medication effects & side effects, Review medication list w/patient every two weeks, Instruct importance of taking meds as ordered & assist problem solving and Other additional 30-day Reassessments:: Met Reassessment Notes & Comments:: Pt is currently taking meds as prescribed. Pt has attended cardiac meds class. Tobacco Use Tobacco Use: Non-smoker Hypertension Resting Blood Pressure:: 94/64 [place] [employer] Hypertension Guidelines Outcomes/Goals: Able to verbalize/achieve optimal blood pressure <130/80, Incorporates diet changes & exercise for blood pressure control by DC and Other additional outcomes/goals Interventions/plan: Instruct on optimal blood pressure, hypertension & medications, Instruct on effects of sodium, alcohol, stress, exercise &hypertension and Other additional plan/interventions 30 day Reassessments:: Met Reassessment Notes & Comments:: Pt's BP's are within AHA normal limits. Tobacco Cessation Referral Smoking Cessation Referral:: No Individual Education/Counseling:: No Education Schedule Given:: Yes Core - 90 Day Assessment Hypertension [place] [employer] Hypertension Guidelines Reassessment Notes & Comments:: Pt's BP's are within AHA normal limits. Core - 60-Day Assessment Hypertension Resting Blood Pressure:: 94/64 [place] [employer] Hypertension Guidelines Psychosocial - 30-Day Assess Referral to Behavioral Health PS - Interventions: Yes: Attend Stress Management Classes Psychosocial - 60-Day Assess Referral to Behavioral Health PS - Interventions: Yes: Attend Stress Management Classes Psychosocial - 90-Day Assess Referral to Behavioral Health PS - Interventions: Yes: Attend Stress Management Classes Psychosocial - Final Assessmen VIsit Date of Eval: 06/26/25 History of previous Mental disease:: No Psychosocial Test Tool Used:: PHQ-9 Questionnaire phq-9 Severity See PHQ-9 Score: 7 Referral to Behavioral Health PS - Interventions: Yes: Attend Stress Management Classes Outcomes/Goals: See list Psychosocial Outcomes/Goals:: ID's personal stressors & 2 strategies to manage stress by discharge and Other Additional outcome/goals: Intervention/Plan: See List Interventions/Plan:: Assess stressors,coping strategies & signs of derpression on admission, Instruct/assist pt to develop coping & personal stress Mgt strategies, Refer to Behavioral Health if appropriate, Refer to Physician if appropriate, Instruct patient to recognize signs & symptoms of depression, Instruct patient to recog and Other additional plan/intervention 30-day Reassessments: 30 day Reassessments:: Met Reassessment Notes & Comments:: Pt denies any psychosocial issues at this time. Nutrition - 90-Day Assessment Weight Mgt (Other Care) Height: 5 ft 6 in Weight:: 148 lb BMI: 23.8 Nutrition - Final Assessment Program Goals Patient has diagnosis of Hyperlipidemia (ICD E78)?: Yes Visit Date of Assessment:: 06/26/25 Session #:: 36 Cholesterol/Lipids (Other Core Measures) Determine presence & major risk factors that modify LDL goal: Hypertension or hypertensive medication, Low HDL cholesterol <40 mg/dL*, Family history of premature CHD in Male < 55 years: female <65 yearsFa and Age men > 45 years; women >/= 55 years Outcomes/Goals: Pt IDs own risk factors & lifestyle modifications by Session 10, Verbalizes symptoms of angina & response by session 3., Pt independently manages and Other Additional Outcomes/Goals: Intervention/Plan: Advocate for lipid panel cholesterol medication if applicable, Instruct on personal lipid levels & lipid goals/NCEP guidelines, Instruct on cholesterol and Other additional plan/int Diabetes (Other Core Measures) Diabetes Type: Not Applicable Weight Mgt (Other Care) Height: 5 ft 6 in Weight:: 148 lb BMI: 23.8 Diagnosis Overweight/Obesity BMI> 30% ICD-10 E66: No Diagnosis High BMI/Morbid Obesity BMI> 35% ICD-10 Z68: No 30 day Reassessments:: Met Reassessment Notes & Comments:: Pt is at a healthy weight. Pt has been given the tools to maintain a healthy diet. Healthy Eating Habits Will attend diet classes:: Yes Outcomes/Goals:: Consume diet rich in vegs,fruits,whole grain/high fiber,fish,lean meat, Limit sat/trans fats,cholesterol & added salts & sugars and Other additional outcome/goals: Intervention/Plan:: Assess current eating habits and Other Additional plan/interventions 30-day Reassessments:: Met Reassessment Notes & Comments:: Pt has attended nutrition class. Pt understands the benefits of a hearth healthy low sodium diet. Education Gave educational materials for:: Signs & symptoms of hypoglycemia, Signs & symptoms of hyperglycemia, Relate diabetes to coronary artery disease and Healthy eating
[2025-06-26 09:00] VITALS: BP 94/64
[2025-06-26 09:09] VITALS: BP 94/64; BMI 23.8
== END 2025-06-18 23:59 ==
LOC: CR 15:15
PROVIDERS: PCP Family Medicine; Referring Provider Internal Medicine Interventional Cardiology; Visit Provider Internal Medicine Interventional Cardiology
DX: Z95.1 Presence of aortocoronary bypass graft (principal)
CPT/HCPCS: 93798